=== PATIENT | female | born 1945 | race Caucasian/White ===

== ENCOUNTER 2019-10-16 10:27 | Outpatient (CLI) | payer MEDICARE, OTHER, SELFPAY ==
--- NOTE | ~2019-10-16 | MM_ITS ---
EXAMINATION: MM screening macy BI w richar HISTORY: Screening mammogram TECHNIQUE: Craniocaudal and mediolateral oblique 3-D tomosynthesis images were obtained and synthetic 2-D images were generated. CAD analysis was submitted and interpreted. COMPARISON: 09/07/2017, 06/28/2016, 05/12/2015 bilateral digital screening mammogram examinations BREAST PARENCHYMAL COMPOSITION: There are scattered areas of fibroglandular density. FINDINGS: There is no evidence of suspicious mass, calcification, or architectural distortion to sugg est malignancy in either breast. There has been no suspicious interval change. IMPRESSION: 1. No mammographic evidence of malignancy. 2. Recommend routine screening mammography in one year. BI-RADS Category 1: Negative Reviewed, dictated and finalized at location A.
== END 2019-10-16 10:28 | disposition home or self-care (01) ==
PROVIDERS: PCP Family Medicine; Visit Provider Nurse Practitioner Adult Health
DX: Z12.31 Encounter for screening mammogram for malignant neoplasm of breast (principal)
CPT/HCPCS: 77063; 77067

== ENCOUNTER 2021-09-19 12:04 | Emergency (ER) | payer MEDICARE, SELFPAY ==
[2021-09-19 12:15] VITALS: BP 156/94; PULSE 69; RESP 18; TEMP 36.6; O2SAT 99
--- NOTE | 2021-09-19 12:24 | ED.SKABFB ---
HPI - Skin/Abscess/Foreign Bdy General Chief complaint: Skin/Abscess/Foreign Body Stated complaint: Insect Bite Back Time Seen by Provider: 09/19/21 12:25 History of Present Illness HPI narrative: Daxa Piña is a 76 yo female with HTN, high cholesterol, [facility] with a tick bite on her left flank that has been there for few days her removed the tick yesterday and is got a small red area there but no spreading erythema Related Data Home Medications Medication Instructions Recorded Confirmed atenolol 50 mg-chlorthalidone 25 1 tablet DAILY 09/19/21 09/19/21 mg tablet simvastatin 20 mg tablet 1 tablet DAILY 09/19/21 09/19/21 Allergies Allergy/AdvReac Type Severity Reaction Status Date / Time No Known Allergies Allergy Verified 09/19/21 12:34 Review of Systems Review of Systems: CONSTITUTIONAL: Denies fever, chills, sweats. EYES: Denies visual changes, redness, discharge. ENT: Denies rhinorrhea, congestion, sore throat, otalgia. CARDIOVASCULAR: Denies chest pain, palpitations, edema. RESPIRATORY: Denies dyspnea, wheezing, cough GASTROINTESTINAL: Denies abdominal pain, nausea, vomiting, diarrhea. GENITOURINARY: Denies dysuria, hematuria, abnormal discharge SKIN: Denies rash or itching. Possible tick on left flank that was removed last night NEUROLOGIC: Denies numbness, or focal weakness. PSYCHIATRIC: Denies anxiety or depression. [facility] Social History Social History (Updated 09/19/21 @ 12:36 by Rose Corral CNP) Smoking status: Never smoker Alcohol intake: never Living arrangements: with family Comments At time of signature, I agree with nursing past medical, surgical, social and family history. There is no relevant family history pertinent to the presenting complaint. Exam Narrative: GENERAL: This is a well-nourished, well-developed patient, in mild distress. HEAD: normocephalic, atraumatic. EYES: . Sclera clear/white. Vision is grossly intact. EARS: External ears normal, . Hearing grossly intact. NOSE: External nose normal without nasal discharge, nares without redness, no rhinorrhea. THROAT: Mucous membranes moist, NECK: Neck supple, CARDIOVASCULAR: Regular rate and rhythm without murmurs, gallops, or rubs. RESPIRATORY: Clear to auscultation. Breath sounds equal bilaterally. No wheezes, rales, or rhonchi. GASTROINTESTINAL: Abdomen soft, left flank small red lesion where tick was looks noninflamed, nontender, SKIN: warm, intact with no suspicious lesions NEURO: awake, alert, and oriented to person, place and time. There were no obvious focal neurologic abnormalities. Steady gait EXTREMITIES: Normal range of motion. BACK: Nontender without deformity Course Course Emergency Course: Patient here with tick bite and removed tick last night but she wanted to have her skin checked Small lesion to left flank which is noninflamed and nontender looks like normal healing bite given information on potential symptoms that could develop and agreed on plan to not treat preventatively Level of Care: Express Care Visit Vital Signs Vital signs: Vital Signs Temperature 97.8 F 09/19/21 12:15 Pulse Rate 69 09/19/21 12:15 Respiratory Rate 18 09/19/21 12:15 Blood Pressure 156/94 H 09/19/21 12:15 Pulse Oximetry 99 09/19/21 12:15 Oxygen Delivery Room Air 09/19/21 12:15 Temperature 97.8 F 09/19/21 12:15 Pulse Rate 69 09/19/21 12:15 Respiratory Rate 18 09/19/21 12:15 Blood Pressure 156/94 H 09/19/21 12:15 Pulse Oximetry 99 09/19/21 12:15 Oxygen Delivery Room Air 09/19/21 12:15 MDM - Skin/Abscess/Foreign Bdy Differential Diagnosis Differential diagnosis: Likely cellulitis, insect bites and other (Tick bite) Critical Care Time Critical Care Time Critical Care Time: No Discharge Plan Discharge Clinical Impression: Tick bite Patient Disposition: Home, Self-Care Condition: Stable Instructions: Tick Bite (ED) Add
== END 2021-09-19 12:46 | disposition home or self-care (01) ==
PROVIDERS: Emergency Provider Nurse Practitioner; PCP Nurse Practitioner Adult Health
DX: S30.861A Insect bite (nonvenomous) of abdominal wall, initial encounter (principal); W57.XXXA Bitten or stung by nonvenomous insect and other nonvenomous arthropods, initial encounter; E78.00 Pure hypercholesterolemia, unspecified; I10 Essential (primary) hypertension
CPT/HCPCS: 99212; G0463

== ENCOUNTER 2023-12-10 10:18 | Outpatient (CLI) | payer MEDICARE, SELFPAY ==
--- NOTE | ~2023-12-10 | DEXA_ITS ---
Bone Density Report Name: LAYLA CORRALES Age: 78 Sex: Female Ethnicity: White Date of : 1945 Indication: osteopenia; Referring Provider: SILVINA POE Study: Bone densitometry was performed. Exam Date: December 10, 2023 Accession number: [id number] Bone Density: Region BMD T-score Z-score Classification AP Spine(L1, L2, L3) 0.876 -1.3 1.2 Osteopenia Femoral Neck (Left) 0.574 -2.5 -0.3 Osteoporosis Total Hip (Left) 0.719 -1.8 0.1 Osteopenia Femoral Neck (Right) 0.623 -2.0 0.1 Osteopenia Total Hip (Right) 0.698 -2.0 -0.1 Osteopenia Total Hip Mean 0.709 -1.9 0.0 Osteopenia World Health Organization criteria for BMD impression classify patients as: Normal (T-score at or above -1.0), Osteopenia (T-score between -1.0 and -2.5), or Osteoporosis (T-score at or below -2.5). 10-year Fracture Risk: FRAX not reported because: Some T-score for Spine Total or Hip Total or Femoral Neck at or below -2.5 Previous Exams: Region Exam Age BMD T-score BMD Change BMD Change Date g/cm2 vs Baseline vs Previous AP Spine (L1-L3) 12/10/2023 78 0.876 -1.3 -0.015 (-1.7%) -0.015 (-1.7%) 03/29/2018 73 0.891 -1.2 Total Hip(Left) 12/10/2023 78 0.719 -1.8 -0.033 (-4.4%) -0.033 (-4.4%) 03/29/2018 73 0.753 -1.6 Total Hip(Right) 12/10/2023 78 0.698 -2.0 -0.026 (-3.7%) -0.026 (-3.7%) 03/29/2018 73 0.725 -1.8 *Denotes significance at 95% confidence level, LSC for AP Spine = 0.022 g/cm2, LSC for Total Hip = 0.027 g/cm2 Clinical Information Provided by Patient: Has used the following medications: Calcium Patient maximum height was 67.5 Menopause Age: 47 Drinks caffeinated beverages Onset of menses at age 15 Number of children 0 Impression: The patient has osteoporosis, based on the Left Femoral Neck T-score. The BMD for the Total Hip(Left) decreased, changing by -4.4% since the last DXA exam. Discussion: INCREASED RISK OF FRACTURE. BONE DENSITY IS UNDESIRABLY LOW AT ONE OR MORE SKELETAL SITES, CONSISTENT WITH POSTMENOPAUSAL OSTEOPOROSIS. This patient's lowest T-score meets the World Health Organization's (WHO) criteria for osteoporosis at one or more sites (T-score -2.5 or below). In untreated patients, the risk of osteoporotic fracture increases approximately two-fold for each 1.0 SD decrease in T-score. Low bone density is not the only risk factor for fracture; also consider factors such as patient's age, frailty or poor health, risk
== END 2023-12-10 10:19 | disposition home or self-care (01) ==
LOC: ANHIMG 10:19
PROVIDERS: PCP Nurse Practitioner Family; Visit Provider Nurse Practitioner Family
DX: Z78.0 Asymptomatic menopausal state (principal)
CPT/HCPCS: 77080

== ENCOUNTER 2024-02-21 11:49 | Outpatient (CLI) | payer MEDICARE, SELFPAY ==
--- NOTE | ~2024-02-21 | XR_ITS ---
AP and lateral views of the right hip Clinical history: Pain Findings: No acute fracture or dislocation is seen. There is severe osteoarthritis of the right hip j oint. There is remodeling of the femoral head with reactive sclerosis and extensive osteophyte format ion.. Calcified uterine fibroids noted. Impression: Severe osteoarthritis of the right hip joint. Calcified uterine fibroids. Reviewed, dictated and finalized at location M. T TECHNICIAN Impression: Severe osteoarthritis of the right hip joint. Calcified uterine fibroids.
--- NOTE | ~2024-02-21 | XR_ITS ---
Right Knee Technique: AP, lateral, and sunrise views were obtained. Clinical History: Pain Findings: No fracture or dislocation is seen. Osseous alignment is anatomic. Joint spaces are preserv ed without degenerative or erosive change. Soft tissues are unremarkable. No joint effusion is seen. Impression: Unremarkable right knee radiographs. Reviewed, dictated and finalized at location . CTOR CARDIOVASCULAR Impression: Unremarkable right knee radiographs.
== END 2024-02-21 11:50 | disposition home or self-care (01) ==
PROVIDERS: PCP Nurse Practitioner Family; Visit Provider Nurse Practitioner Family
DX: M16.11 Unilateral primary osteoarthritis, right hip (principal); D25.9 Leiomyoma of uterus, unspecified; M25.561 Pain in right knee
CPT/HCPCS: 73502; 73562

== ENCOUNTER 2024-06-18 08:56 | Outpatient (CLI) | payer MEDICARE, SELFPAY ==
--- NOTE | 2024-06-18 09:19 | ECG_ITS ---
Test Date: 2024-06-18 09:46:55 Measurements Intervals [place] Rate: 74 P: 67 SD: 144 QRS: 51 QRSD: 89 T: 67 QT: 385 QTc: 427 Interpretive Statements SINUS RHYTHM POSSIBLE LEFT ATRIAL ENLARGEMENT CANNOT R/O SEPTAL INFARCT, AGE INDETERMINATE ABNORMAL ECG No previous ECG available for comparison Electronically Signed On 06-18-2024 10:01:52 CDT by Mo Dumont D.O.
--- OUTSIDE RECORDS SUMMARY | 2024-06-18 09:24 | XMS_ITS | Data Portability ---
Author Organization [facility] [employer], Main Office Address [address] [place] [address] Assessment No assessment recorded. Plan of Treatment Reminders Order Date Submit Date Provider Last Modified By Organization Details Last Modified Time Details Appointments None recorded. Lab BMP, serum or plasma 2022 023 [facility], [address] [place], [address], 3 20:27:40 lipid panel, serum 2022 023 [facility], [address] [place], [address], 3 20:27:44 hepatic function panel, serum 2022 023 [facility], [address] [place], [address], 3 20:27:47 Referral None recorded. Procedures None recorded. Surgeries None recorded. Imaging None recorded. Medication Orders None recorded. Patient TargetsNo targets recorded. Patient Instructions Encounter Date Encounter Id Patient Instructions Last Modified By Organization Details Last Modified Time 07/10/2022 [id number] FU in 6 mo for htn, lipid, back/hip/hand pain Not available 07/11/2022 07:36:11 11/29/2022 [id number] 6 mo fu htn, lipid. Not available 11/29/2022 09:25:11 Reason for Referral None Reported. Results Created Date Observation Date Name Description Value Unit Range Abnormal Flag Note LastModifiedBy Organization Detail LastModifiedTime 06/14/19 22 06/14/2021 HEPAT IC FUNCT ION PANEL protein, total 6.9 g/dL 6.1-8. 1 normal Not Available [address], [address], 06/14/2021 03:41:31 06/14/19 22 06/14/2021 HEPAT IC FUNCT ION PANEL albumin 4.6 g/dL 3.6-5. 1 normal Not Available [address], [address], 06/14/2021 03:41:31 06/14/19 22 06/14/2021 HEPAT IC FUNCT ION PANEL globulin 2.3 g/dL_ (calc ) 1.9-3. 7 normal Not Available [address], [address], 06/14/2021 03:41:31 06/14/19 22 06/14/2021 HEPAT IC FUNCT ION PANEL albumin/glob ulin ratio 2.0 (calc ) 1.0-2. 5 normal Not Available [address], [address], 06/14/2021 03:41:31 06/14/19 22 06/14/2021 HEPAT IC FUNCT ION PANEL bilirubin, total 0.6 mg/dL 0.2-1. 2 normal Not Available [address], [address], 06/14/2021 03:41:31 06/14/19 22 06/14/2021 HEPAT IC FUNCT ION PANEL bilirubin, direct 0.1 mg/dL < or = 0.2 normal Not Available [address], [address], 06/14/2021 03:41:31 06/14/19 22 06/14/2021 HEPAT IC FUNCT ION PANEL bilirubin, indirect 0.5 mg/dL _(flavia c) 0.2-1. 2 normal Not Available [address] [place], [address], 06/14/2021 03:41:31 06/14/19 22 06/14/2021 HEPAT IC FUNCT ION PANEL alkaline phosphatase 67 U/L 37-153 normal Not Available [facility] [email or web address] [address] [address] [place], [address], 06/14/2021 03:41:31 06/14/19 22 06/14/2021 HEPAT IC FUNCT ION PANEL AST 33 U/L 10-35 normal Not Available [address] [address] [place], [address], 06/14/2021 03:41:31 06/14/19 22 06/14/2021 HEPAT IC FUNCT ION PANEL ALT 20 U/L 6-29 normal Not Available [address], [address], 06/14/2021 03:41:31 06/14/19 22 06/14/2021 BASIC METAB OLIC PANEL glucose 99 mg/dL 65-99 normal Fasti ng refer ence inter laverne Not Available [address], [address], 06/14/2021 03:41:31 06/14/19 22 06/14/2021 BASIC METAB OLIC PANEL urea nitrogen (BUN) 14 mg/dL 7-25 normal Not Available [address], [address], 06/14/2021 03:41:31 06/14/19 22 06/14/2021 BASIC METAB OLIC PANEL creatinine 0.68 mg/dL 0.60-0 .93 normal For patie nts >49 years of age, the refer ence limit for Creat inine is appro ximat orion 13% highe r for peopl e ident ified as Afric an-Am kathy n. Not Available [address], [address], 06/14/2021 03:41:31 06/14/19 22 06/14/2021 BASIC METAB OLIC PANEL eGFR non-afr. swiss 86 mL/mi n/1.7 3m2 > or = 60 normal Not Available [address], [address], 06/14/2021 03:41:31 06/14/19 22 06/14/2021 BASIC METAB OLIC PANEL eGFR 100 mL/mi n/1.7 3m2 > or = 60 normal Not Available [address], [address], 06/14/2021 03:41:31 06/14/19 22 06/14/2021 BASIC METAB OLIC PANEL BUN/creatini ne ratio not applic able (calc ) 6-22 Not Available [address], [address], 06/14/2021 03:41:31 06/14/19 22 06/14/2021 BASIC METAB OLIC PANEL sodium 132 mmol/ L 135-14 6 low Not Available [address], [address], 06/14/2021 03:41:31 06/14/19 22 06/14/2021 BASIC METAB OLIC PANEL potassium 4.3 mmol/ L 3.5-5. 3 normal Not Available [address], [address], 06/14/2021 03:41:31 06/14/19 22 06/14/2021 BASIC METAB OLIC PANEL chloride 95 mmol/ L 98-110 low Not Available [address], [address], 06/14/2021 03:41:31 06/14/19 22 06/14/2021 BASIC METAB OLIC PANEL carbon dioxide 30 mmol/ L 20-32 normal Not Available [address], [address], 06/14/2021 03:41:31 06/14/19 22 06/14/2021 BASIC METAB OLIC PANEL calcium 10.3 mg/dL 8.6-10 .4 normal Not Available [address], [address], 06/14/2021 03:41:31 06/14/19 22 06/14/2021 LIPID PANEL , STAND PATT chol/HDLC ratio 2.7 (calc ) <5.0 normal Not Available [address], [address], 06/14/2021 03:41:30 06/14/19 22 06/14/2021 LIPID PANEL , STAND PATT cholesterol, total 203 mg/dL <200 high Not Available [address], [address], 06/14/2021 03:41:30 06/14/19 22 06/14/2021 LIPID PANEL , STAND PATT HDL cholesterol 75 mg/dL > or = 50 normal Not Available [address], [address], 06/14/2021 03:41:30 06/14/19 22 06/14/2021 LIPID PANEL , STAND PATT triglyceride s 55 mg/dL <150 normal Not Available [address], [address], 06/14/2021 03:41:30 06/14/19 22 06/14/2021 LIPID PANEL , STAND PATT LDL-choleste rol 114 mg/dL _(flavia c) high Refer ence range : <100 Elham able range <100 mg/dL for prima ry preve ntion ; <70 mg/dL for patie nts with CHD or diabe tic patie nts with > or = 2 CHD risk facto rs. LDL-C is now calcu lated using the [facility] fahad kelly, which is a valid ated novel metho d provi preston cedrick r accur acy than the Fried nestor equat ion in the estim ation of LDL-C . Abby n SS et al. ZORNA. 2013; 310(1 9): 2061- 2068 (http ://ed ucati on.Qu Reba brunoBEAT [employer]. com/f aq/FA Q164) Not Available [facility] [address] [place], [address], 06/14/2021 03:41:30 06/14/19 22 06/14/2021 LIPID PANEL , STAND PATT non HDL cholesterol 128 mg/dL _(flavia c) <130 normal For patie nts with diabe yoni plus 1 major ASCVD risk facto r, treat ing to a non-H DL-C goal of <100 mg/dL (LDL- C of <70 mg/dL ) is consi stand a quintina pekarenai c optio n. Not Available [employer] [facility] [address] [address], [place], [address], 06/14/2021 03:41:30 12/30/19 22 12/29/2021 LIPID PANEL LDL cholesterol, calculated 120 mg/dL 0-130 NIH ABENA NSUS REPOR T RECOM MENDA TIONS FOR LDL: ADULT CHILD LOW RISK <130 <110 (OPTI MAL LDL) <100 ----- BORDE RLINE : 130-1 59 ----- HIGH RISK: >160 >130 A TRIGL YCERI DE RESUL T >400 INVAL IDATE S THE CALCU LATIO N FOR LDL FRACT IONAT ION - THE LDL RESUL T WILL NOT BE REPOR JIMBO. Not Available [facility] (Lab) [address] [place], [address], 12/29/2021 20:27:48 12/30/1912/29/2021 LIPID PANEL cholesterol 193 mg/dL 140-19 9 NIH ABENA NSUS RECOM MENDA TION FOR CHRISTIANE STERO L: ADULT CHILD LOW RISK: <200 <170 BORDE RLINE : <200- 239 ----- HIGH RISK: >240 >200 Not Available [facility] (Lab) [address] [place], [address], 12/29/2021 20:27:48 12/30/19 22 12/29/2021 LIPID PANEL triglyceride s 58 mg/dL 0-150 NIH ABENA NSUS REPOR T RECOM MENDA TION FOR TRIGL YCERI NAN: ADULT CHILD LOW RISK: <150 ----- BODER LINE: 150-1 99 ----- HIGH RISK: >200 ----- Not Available [facility] (Lab) [address] [place], [address], 12/29/2021 20:27:48 12/30/19 22 12/29/2021 LIPID PANEL HDL cholesterol 61 mg/dL 40- Not Available [facility] (Lab) [address] [place], [address], 12/29/2021 20:27:48 12/30/19 22 12/29/2021 HEPAT IC/LI SEJAL PANEL albumin 4.3 g/dL 3.0-4. 4 Not Available [facility] (Lab) [address] [place], [address], 12/29/2021 20:27:45 12/30/19 22 12/29/2021 HEPAT IC/LI SEJAL PANEL globulin 2.7 g/dL 2.6-4. 2 Not Available [facility] (Lab) [address] [place], [address], 12/29/2021 20:27:45 12/30/19 22 12/29/2021 HEPAT IC/LI SEJAL PANEL A/G ratio 1.6 ratio 1.0-2. 0 Not Available [facility] (Lab) [address] [place], [address], 12/29/2021 20:27:45 12/30/19 22 12/29/2021 HEPAT IC/LI SEJAL PANEL alkaline phosphatase 68 U/L 38-126 Not Available [facility] (Lab) [address] [place], [address], 12/29/2021 20:27:45 12/30/19 22 12/29/2021 HEPAT IC/LI SEJAL PANEL alanine aminotransfe rase 22 U/L 0-[address] [facility] (Lab) [address] [place], [address], 12/29/2021 20:27:45 12/30/1912/29/2021 HEPAT IC/LI SEJAL PANEL aspartate aminotransfe rase 47 U/L 15-37 high Not Available [facility] (Lab) [address] [place], [address], 12/29/2021 20:27:45 12/30/1912/29/2021 HEPAT IC/LI SEJAL PANEL bilirubin, total 0.50 mg/dL 0.20-1 .30 Not Available [facility] (Lab) [address] [place], [address], 12/29/2021 20:27:45 12/30/1912/29/2021 HEPAT IC/LI SEJAL PANEL bilirubin, conjugated (direct) 0.00 mg/dL 0.00-0 .30 Not Available [facility] (Lab) [address] [place], [address], 12/29/2021 20:27:45 12/30/1912/29/2021 HEPAT IC/LI SEJAL PANEL biliurubin,u ncong. (indirect) 0.40 mg/dL 0.00-1 .1 Not Available [facility] (Lab) [address] [place], [address], 12/29/2021 20:27:45 12/30/19 22 12/29/2021 HEPAT IC/LI SEJAL PANEL total protein 7.0 g/dL 6.3-8. 2 Not Available [facility] (Lab) [address] [place], [address], 12/29/2021 20:27:45 12/30/19 22 12/29/2021 BASIC METAB OLIC PANEL glucose 102 mg/dL 70-99 high Not Available [facility] (Lab) [address] [place], [address], 12/29/2021 20:27:39 12/30/19 22 12/29/2021 BASIC METAB OLIC PANEL sodium 132 mmol/ L 137-14 5 low Not Available [facility] (Lab) [address] [place], [address], 12/29/2021 20:27:39 12/30/1912/29/2021 BASIC METAB OLIC PANEL potassium 4.4 mmol/ L 3.5-5. 1 Not Available [facility] (Lab) [address] [place], [address], 12/29/2021 20:27:39 12/30/1912/29/2021 BASIC METAB OLIC PANEL chloride 94 mmol/ L 98-107 low Not Available [facility] (Lab) [address] [place], [address], 12/29/2021 20:27:39 12/30/19 22 12/29/2021 BASIC METAB OLIC PANEL carbon dioxide 35 mmol/ L 22-30 high Not Available [facility] (Lab) [address] [place], [address], 12/29/2021 20:27:39 12/30/19 22 12/29/2021 BASIC METAB OLIC PANEL anion gap 7.4 mmol/ L 14-22 low Not Available [facility] (Lab) [address] [place], [address], 12/29/2021 20:27:39 12/30/19 22 12/29/2021 BASIC METAB OLIC PANEL BUN 21 mg/dL 8-19 high Not Available [facility] (Lab) [address] [place], [address], 12/29/2021 20:27:39 12/30/19 22 12/29/2021 BASIC METAB OLIC PANEL creatinine 0.70 mg/dL 0.66-1 .25 Not Available [facility] (Lab) [address] [place], [address], 12/29/2021 20:27:39 12/30/19 22 12/29/2021 BASIC METAB OLIC PANEL GFR >60 Refer ence Range : [place] GFR Healt hy Adult : >60 mL/mi n/1.7 3 m2 Chron ic Kidne y Disea se: 15-60 mL/mi n/1.7 3 m2 Kidne y Failu re: <15/m L/min /1.73 m2 www.n iddk. nih.g ov The MDRD study equat ion has not been valid ated in child jorge <18 years of age; pregn ant women ; the elder ly >85 years of age; or in some racia l or ethni c subgr oups, such as Hisky nics. Outsi de the valid ated ayala eters , estim ated GFR is less accur ate, requi ring clini flavia judgm ent on a case- by-ca se basis . Clini flavia inter preta tion for other races and ages must be made by the clini karina. The MDRD study equat ion has not been valid ated for the evalu ation of serum creat inine relat ed to nutri juan l statu s or medic ation usage . For perso ns <18 years of age, a pedia tric GFR calcu lator is avail able on the F websi te: https ://salena w.raj tirado.o rg/pr ofess ional s/kdo qi/gf r_cal culat or Not Available [facility] (Lab) [address] [place], [address], 12/29/2021 20:27:39 12/30/19 22 12/29/2021 BASIC METAB OLIC PANEL calcium 9.8 mg/dL 8.4-10 .2 Not Available [facility] (Lab) [address] [facility], [place], [address], 12/29/2021 20:27:39 01/27/20 22 01/27/2022 RENAL FUNCT ION PANEL glucose 90 mg/dL 65-99 normal Fasti ng refer ence inter laverne Not Available [address] [address] [place], [address], 01/27/2022 02:18:26 01/27/20 22 01/27/2022 RENAL FUNCT ION PANEL urea nitrogen (BUN) 18 mg/dL 7-25 normal Not Available [address], [address], 01/27/2022 02:18:26 01/27/20 22 01/27/2022 RENAL FUNCT ION PANEL creatinine 0.79 mg/dL 0.60-1 .00 normal Not Available [address], [address], 01/27/2022 02:18:26 01/27/20 22 01/27/2022 RENAL FUNCT ION PANEL eGFR 78 mL/mi n/1.7 3m2 > or = 60 normal The eGFR is based on the CKD-E PI 2020 equat ion. To calcu late the new eGFR from a previ ous Creat inine or Cysta tin C resul t, go to https ://salena hair.raj tirado.o lena/candice hooker s/ kdoqi /gfr% 5Fcal culat or Not Available [address] [address] [place], [address], 01/27/2022 02:18:26 01/27/20 22 01/27/2022 RENAL FUNCT ION PANEL BUN/creatini ne ratio not applic able (calc ) 6-22 Not Available [address] [address] [place], [address], 01/27/2022 02:18:26 01/27/20 22 01/27/2022 RENAL FUNCT ION PANEL sodium 136 mmol/ L 135-14 6 normal Not Available [address], [address], 01/27/2022 02:18:26 01/27/20 22 01/27/2022 RENAL FUNCT ION PANEL potassium 4.0 mmol/ L 3.5-5. 3 normal Not Available [address], [address], 01/27/2022 02:18:26 01/27/20 22 01/27/2022 RENAL FUNCT ION PANEL chloride 99 mmol/ L 98-110 normal Not Available [address], [address], 01/27/2022 02:18:26 01/27/20 22 01/27/2022 RENAL FUNCT ION PANEL carbon dioxide 30 mmol/ L 20-32 normal Not Available [address], [address], 01/27/2022 02:18:26 01/27/20 22 01/27/2022 RENAL FUNCT ION PANEL calcium 10.0 mg/dL 8.6-10 .4 normal Not Available [address], [address], 01/27/2022 02:18:26 01/27/20 22 01/27/2022 RENAL FUNCT ION PANEL phosphate ( phosphorus) 3.2 mg/dL 2.1-4. 3 normal Not Available [address], [address], 01/27/2022 02:18:26 01/27/20 22 01/27/2022 RENAL FUNCT ION PANEL albumin 4.4 g/dL 3.6-5. 1 normal Not Available [address], [address], 01/27/2022 02:18:26 07/14/19 23 07/13/2022 BASIC METAB OLIC PANEL sodium 133 mmol/ L 137-14 5 low Not Available [facility] (Lab) [address] [place], [address], 07/13/2022 20:27:40 07/14/19 23 07/13/2022 BASIC METAB OLIC PANEL potassium 3.9 mmol/ L 3.5-5. 1 Not Available [facility] (Lab) [address] [place], [address], 07/13/2022 20:27:40 07/14/19 23 07/13/2022 BASIC METAB OLIC PANEL chloride 96 mmol/ L 98-107 low Not Available [facility] (Lab) [address] [place], [address], 07/13/2022 20:27:40 07/14/19 23 07/13/2022 BASIC METAB OLIC PANEL carbon dioxide 30 mmol/ L 22-30 Not Available [facility] (Lab) [address] [place], [address], 07/13/2022 20:27:40 07/14/19 23 07/13/2022 BASIC METAB OLIC PANEL anion gap 10.9 mmol/ L 14-22 low Not Available [facility] (Lab) [address] [place], [address], 07/13/2022 20:27:40 07/14/19 23 07/13/2022 BASIC METAB OLIC PANEL glucose 93 mg/dL 70-99 Not Available [facility] (Lab) [address] [place], [address], 07/13/2022 20:27:40 07/14/19 23 07/13/2022 BASIC METAB OLIC PANEL BUN 14 mg/dL 8-19 Not Available [facility] (Lab) [address] [place], [address], 07/13/2022 20:27:40 04/07/13/2022 BASIC METAB OLIC PANEL creatinine 0.68 mg/dL 0.66-1 .25 Not Available [facility] (Lab) [address] [place], [address], 07/13/2022 20:27:40 07/14/19 23 07/13/2022 BASIC METAB OLIC PANEL GFR >60 Refer ence Range : [place] GFR Healt hy Adult : >60 mL/mi n/1.7 3 m2 Chron ic Kidne y Disea se: 15-60 mL/mi n/1.7 3 m2 Kidne y Failu re: <15/m L/min /1.73 m2 www.n iddk. nih.g ov The MDRD study equat ion has not been valid ated in child jorge <18 years of age; pregn ant women ; the elder ly >85 years of age; or in some racia l or ethni c subgr oups, such as Hispa nics. Outsi de the valid ated ayala eters , estim ated GFR is less accur ate, requi ring clini flavia judgm ent on a case- by-ca se basis . Clini flavia inter preta tion for other races and ages must be made by the clini karina. The MDRD study equat ion has not been valid ated for the evalu ation of serum creat inine relat ed to nutri juan l statu s or medic ation usage . For perso ns <18 years of age, a pedia tric GFR calcu lator is avail able on the [facility] websi te: https ://salena w.raj tirado.o rg/pr emeliess kaelighal s/kdo qi/gf r_cal culat or Not Available [facility] (Lab) [address] [place], [address], 07/13/2022 20:27:40 07/14/1907/13/2022 BASIC METAB OLIC PANEL calcium 9.9 mg/dL 8.4-10 .2 Not Available [facility] (Lab) [address] [place], [address], 07/13/2022 20:27:40 07/14/19 23 07/13/2022 LIPID PANEL cholesterol 203 mg/dL 140-19 9 high NIH ABENA NSUS RECOM MENDA TION FOR CHRISTIANE STERO L: ADULT CHILD LOW RISK: <200 <170 BORDE RLINE : <200- 239 ----- HIGH RISK: >240 >200 Not Available [facility] (Lab) [address] [place], [address], 07/13/2022 20:27:44 07/14/19 23 07/13/2022 LIPID PANEL triglyceride s 60 mg/dL 0-150 NIH ABENA NSUS REPOR T RECOM MENDA TION FOR TRIGL YCERI NAN: ADULT CHILD LOW RISK: <150 ----- BODER LINE: 150-1 99 ----- HIGH RISK: >200 ----- Not Available [facility] (Lab) [address] [place], [address], 07/13/2022 20:27:44 07/14/19 23 07/13/2022 LIPID PANEL HDL cholesterol 79 mg/dL 40- Not Available [facility] (Lab) [address] [place], [address], 07/13/2022 20:27:44 07/14/19 23 07/13/2022 LIPID PANEL LDL cholesterol, calculated 112 mg/dL 0-130 NIH ABENA NSUS REPOR T RECOM MENDA TIONS FOR LDL: ADULT CHILD LOW RISK <130 <110 (OPTI MAL LDL) <100 ----- BORDE RLINE : 130-1 59 ----- HIGH RISK: >160 >130 A TRIGL YCERI DE RESUL T >400 INVAL IDATE S THE CALCU LATIO N FOR LDL FRACT IONAT ION - THE LDL RESUL T WILL NOT BE REPOR JIMBO. Not Available [facility] (Lab) [address] [place], [address], 07/13/2022 20:27:44 07/14/19 23 07/13/2022 HEPAT IC/LI SEJAL PANEL alkaline phosphatase 61 U/L 38-126 Not Available [facility] (Lab) [address] [place], [address], 07/13/2022 20:29:03 07/14/19 23 07/13/2022 HEPAT IC/LI SEJAL PANEL alanine aminotransfe rase 25 U/L 0-[address] [facility] (Lab) [address] [place], [address], 07/13/2022 20:29:03 07/14/19 23 07/13/2022 HEPAT IC/LI SEJAL PANEL aspartate aminotransfe rase 46 U/L 15-37 high Not Available [facility] (Lab) [address] [place], [address], 07/13/2022 20:29:03 07/14/19 23 07/13/2022 HEPAT IC/LI SEJAL PANEL bilirubin, total 0.50 mg/dL 0.20-1 .30 Not Available [facility] (Lab) [address] [place], [address], 07/13/2022 20:29:03 07/14/19 23 07/13/2022 HEPAT IC/LI SEJAL PANEL bilirubin, conjugated (direct) 0.00 mg/dL 0.00-0 .30 Not Available [facility] (Lab) [address] [place], [address], 07/13/2022 20:29:03 07/14/19 23 07/13/2022 HEPAT IC/LI SEJAL PANEL biliurubin,u ncong. (indirect) 0.30 mg/dL 0.00-1 .1 Not Available [facility] (Lab) [address] [place], [address], 07/13/2022 20:29:03 07/14/19 23 07/13/2022 HEPAT IC/LI SEJAL PANEL total protein 7.3 g/dL 6.3-8. 2 Not Available [facility] (Lab) [address] [place], [address], 07/13/2022 20:29:03 07/14/19 23 07/13/2022 HEPAT IC/LI SEJAL PANEL albumin 4.4 g/dL 3.0-4. 4 Not Available [facility] (Lab) [address] [place], [address], 07/13/2022 20:29:03 07/14/19 23 07/13/2022 HEPAT IC/LI SEJAL PANEL globulin 2.9 g/dL 2.6-4. 2 Not Available [facility] (Lab) [address] [place], [address], 07/13/2022 20:29:03 07/14/19 23 07/13/2022 HEPAT IC/LI SEJAL PANEL A/G ratio 1.5 ratio 1.0-2. 0 Not Available [facility] (Lab) [address] [place], [address], 07/13/2022 20:29:03 Result Notes None recorded. 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 Active Not Available [facility] 3 03:22:42 Eruption 592535103 Completed Not Available [facility] 3 03:22:42 Abdominal mass 781967415 Completed Not Available [facility] 3 03:22:42 Low back pain 709324575 Active Not Available [facility] 3 03:22:42 Hyperlipid emia 38349419 Active Not Available [facility] 3 03:22:42 Essential hypertensi on 74374052 Active Not Available [facility] 3 03:22:42 Hyponatrem ia 85292305 Active 2021 Not Available [facility] 3 03:22:42 Problem Notes None recorded. Medical Equipment None Reported. Allergies No known drug allergies Medications Name Sig Start Date Stop Date Status Note LastModified by Organization Details LastModified Time silver sulfadiazin e 1 % topical cream APPLY TO LEG TWICE DAILY DIRECTED 07/10 completed Not Available Not Available Not Available valacyclovi r 1 gram tablet 02/14 completed PRN Not Available Not Available Not Available fluorouraci l 5 % topical cream APPLY TO SPOTS TWICE DAILY X 6 WEEKS 06/07 completed Not Available Not Available Not Available simvastatin 10 mg tablet Take 1 tablet every day by oral route for 90 days. active Not Available Not Available No t Available atenolol 50 mg-chlortha lidone 25 mg tablet TAKE 1 TABLET BY MOUTH DAILY active Not Available Not Available No t Available sulfamethox azole 800 mg-trimetho prim 160 mg tablet TK 1 T PO Q 12 H WITH MEALS FOR 10 DAYS. active Not Available Not Available No t Available ciclopirox 8 % topical solution APPLY TO AFFECTED AREA BY TOPICAL ROUTE ONCE DAILY PREFERABL Y AT BEDTIME OR 8 HOURS BEFPRE WASHING 03/30 completed Not Available Not Available Not Available cephalexin 500 mg capsule TAKE 1 CAPSULE BY MOUTH THREE TIMES DAILY FOR 10 DAYS 06/07 completed Not Available Not Available Not Available simvastatin 20 mg tablet TAKE 1 TABLET BY MOUTH DAILY active Not Available Not Available No t Available triamcinolo ne acetonide 0.1 % topical ointment 07/10 completed Not Available Not Available Not Available atenolol 50 mg tablet 03/29 completed Not Available Not Available Not Available hydrochloro thiazide 12.5 mg tablet TAKE 1 TABLET BY MOUTH DAILY 07/10 completed Not Available Not Available Not Available Truveris 1.5 billion cell capsule Take 1 capsule every day by oral route as directed for 30 days. 08/30 completed Not Available Not Available Not Available BinaxNOW COVID-19 Ag Self Test kit TEST DIRECTED TODAY 12/29 completed Not Available Not Available Not Available Vitals Date Recorded Body height Body mass index (BMI) Body weight Body temperature Heart rate Respiratory rate Oxygen saturation Oxygen saturation in Arterial blood by Pulse oximetry Pain severity - 0-10 verbal numeric rating [Score] - Reported Systolic blood pressure Diastolic blood pressure Provider Name and Address Organization Details Last Updated DateTime 3 170.18 cm 18.5 kg/m2 50365.6 g 96.7 [degF] 75 /min 16 /min 97 % 97 % 0 140 mm[Hg] 82 mm[Hg] Francesca Clements RN [facility] [employer] [facility] 3 15:55:29 Date Recorded Body height Provider Name an d Address Organization Details Last Updated DateTime 07/13/2022 170.18 cm Deanna Gutierrez MA [facility] [place] [facility] 07/13/2022 12:45:49 Date Recorded Body height Body mass index (BMI) Body weight Body temperature Heart rate Respiratory rate Oxygen saturation Oxygen saturation in Arterial blood by Pulse oximetry Pain severity - 0-10 verbal numeric rating [Score] - Reported Systolic blood pressure Diastolic blood pressure Provider Name and Address Organization Details Last Updated DateTime 3 170.18 cm 18.9 kg/m2 57757.1 8 g 96.1 [degF] 72 /min 16 /min 98 % 98 % 0 140 mm[Hg] 84 mm[Hg] Francesca Clements RN [facility] [place] [facility] 3 09:09:54 Date Recorded Body mass index (BMI) Body height Oxygen saturation Oxygen saturation in Arterial blood by Pulse oximetry Heart rate Body temperature Body weight Systolic blood pressure Diastolic blood pressure Provider Name and Address Organization Details Last Updated DateTime 2 19.1 kg/m2 170.18 cm 95 % 95 % 72 /min 97.1 [degF] 23401.2 7 g 126 mm[Hg] 80 mm[Hg] Not Available [facility] 3 03:19:00 Date Recorded Body mass index (BMI) Body height Oxygen saturation Oxygen saturation in Arterial blood by Pulse oximetry Heart rate Body temperature Body weight Systolic blood pressure Diastolic blood pressure Provider Name and Address Organization Details Last Updated DateTime 2 18.8 kg/m2 170.18 cm 97 % 97 % 81 /min 97.3 [degF] 70506.0 8 g 130 mm[Hg] 82 mm[Hg] Not Available [facility] 3 03:19:00 Social History Question Answer Notes LastModified by Organizat ion Details LastModified Time Tobacco Smoking Status Never Smoker Yasmin jones, [facility] 11/29/2022 09:02:22 What Is Your Level Of Alcohol Consumption? Occasional [id number] Information not available 05/17/2022 Are You Blind Or Do You Have Difficulty Seeing? No [email or web address] Information not available 11/29/2022 Is Blood Transfusion Acceptable In An Emergency? Yes Information not available 11/29/2022 What Is Your Level Of Caffeine Consumption? Occasional [id number] Information not available 05/17/2022 How Much Tobacco Do You Chew? None [id number] Information not available 05/17/2022 What Is Your Code Status? Full Code Information not available 11/29/2022 In The 14 Days Before Symptom Onset, Have You Had Close Contact With A Laboratory-confi rmed COVID-19 While That Case Was Ill? No [email or web address] Information not available 11/29/2022 In The 14 Days Before Symptom Onset, Have You Had Close Contact With A Person Who Is Under Investigation For COVID-19 While That Person Was Ill? No Information not available 11/29/2022 Are You Deaf Or Do You Have Serious Difficulty Hearing? No [email or web address] Information not available 11/29/2022 What Type Of Diet Are You Following? REGULAR Information not available 07/10/2022 Which Illicit Or Recreational Drugs Have You Used? None [email or web address] Information not available 11/29/2022 Do You Or Have You Ever Used E-cigarettes Or Vape? Never Used Electronic Cigarettes [email or web address] Information not available 11/29/2022 What Is Your Occupation? Retired [email or web address] Information not available 11/29/2022 How Many Days Of Moderate To Strenuous Exercise, Like A Brisk Walk, Did You Do In The Last 7 Days? 4 Information not available 11/29/2022 On Those Days That You Engage In Moderate To Strenuous Exercise, How Many Minutes, On Average, Do You Exercise? 60 Information not available 11/29/2022 Have There Been Any Changes To Your Family Or Social Situation? No [email or web address] Information not available 11/29/2022 Do You Use Insect Repellent Routinely? Yes [email or web address] Information not available 11/29/2022 Where [facility] You Live? [facility] [email or web address] Information not available 11/29/2022 Do You Have A Medical Power Of Shoe Stitcher Odd? Yes [email or web address] Information not available 11/29/2022 How Many Children Do You Have? 0 [email or web address] Information not available 11/29/2022 Do You Have Any Pets? Yes [email or web address] Information not available 11/29/2022 What Is Your Relationship Status? Information not available 07/10/2022 Do You Use Your Seat Belt Or Car Seat Routinely? Yes [email or web address] Information not available 11/29/2022 Do You Have Smoke And Carbon Monoxide Detectors In Your Home? Yes Information not available 11/29/2022 Do You Or Have You Ever Used Smokeless Tobacco? Never Used Smokeless Tobacco [id number] Information not available 05/17/2022 Are There Any Smokers In Your House? No [email or web address] Information not available 11/29/2022 How Much Tobacco Do You Smoke? No [id number] Information not available 05/17/2022 Do You Participate In Social Media? Yes [email or web address] Information not available 11/29/2022 What Types Of Sporting Activities Do You Participate In? Yoga, [place] [email or web address] Information not available 11/29/2022 Do You Feel Stressed (tense, Restless, Nervous, Or Anxious, Or Unable To Sleep At Night)? [id number] [email or web address] Information not available 11/29/2022 Do You Use Any Illicit Or Recreational Drugs? No [email or web address] Information not available 11/29/2022 Do You Use Sunscreen Routinely? Yes [email or web address] Information not available 11/29/2022 Have You Recently Traveled Abroad? No [email or web address] Information not available 11/29/2022 Sex: Unknown Functional Status Question Answer Note LastModified by Organizat ion Details LastModified Time Do you have difficulty walking or climbing stairs? No Information not available 11/29/2022 Do you have transportation difficulties? No [email or web address] Information not available 11/29/2022 Are you able to walk? YESWOREST [email or web address] Information not available 11/29/2022 Do you have difficulty doing errands alone? No Information not available 11/29/2022 Are you able to care for yourself? Yes [email or web address] Information n ot available 11/29/2022 Do you have difficulty dressing or bathing? No Information not available 11/29/2022 What is your exercise level? Moderate [id number] Information not available 05/17/2022 Mental Status Question Answer Note LastModified by Organization D etails LastModified Time Do you have difficulty concentrating, remembering or making decisions? No [email or web address] Information no t available 11/29/2022 Family History Relationship Description Onset Age of this Age Resolved Age Notes LastModified by Organization Details LastModified Time Mother Alzheimer's disease [id number] Not available 05/17/2022 03:14:42 Medical History Condition Response ARTHRITIS Y HYPERTENSION Y HIGH CHOLESTEROL / HYPERLIPIDEMIA Y Gynecological History Statement/Question Response If Post Menopausal, Age at Menopause 42 Date of Last Colonoscopy Most Recent Mammogram Most Recent Bone Density Obstetrics History GPAL:G 2 P 0 0 2 0 Type Value Induced 2 Total 2 Immunizations Vaccine Type Date Status Note Provider Nam e and Address Organization Details Recorded Time Influenza, high-dose, quadrivalent, PF 3 completed Francesca Carroll, [facility] [address] [facility], [facility] [address], [place], [address], [facility] 11/29/2022 09:30:26 COVID-19, mRNA, LNP-S, PF, 100 mcg/0.5mL dose or 50 mcg/0.25mL dose 1 completed Not Available [facility] 05/17/2022 03:31:42 COVID-19, mRNA, LNP-S, PF, 100 mcg/0.5mL dose or 50 mcg/0.25mL dose 1 completed Not Available [facility] 05/17/2022 03:31:42 Influenza, split virus, quadrivalent, preservative 0 completed Not Available [facility] 05/17/2022 03:31:42 Influenza, split virus, quadrivalent, preservative 7 completed Not Available [facility] 05/17/2022 03:31:42 zoster live 1 completed Not Available [facility] 05/17/2022 03:31:42 Tdap 0 completed Not Available [facility] 05/17/2022 03:31:42 Influenza, high-dose, trivalent, PF 9 completed Not Available [facility] 05/17/2022 03:31:42 Influenza, high-dose, trivalent, PF 8 completed Not Available [facility] 05/17/2022 03:31:42 Pneumococcal conjugate PCV 13 7 completed Not Available [facility] 05/17/2022 03:31:42 Influenza, high-dose, trivalent, PF 7 completed Not Available [facility] 05/17/2022 03:31:42 pneumococcal polysaccharide PPV23 4 completed Not Available [facility] 05/17/2022 03:31:43 Influenza, split virus, trivalent, PF 3 completed Not Available [facility] 05/17/2022 03:31:43 Past Encounters Encounter ID Performer Location Encounter Start Date Encounter Closed Date Diagnosis/Indication Diagnosis SNOMED-CT Code Diagnosis ICD10 Code Diagnosis [id number] [address] [place] [address] [place] [address] 06/21/2020 00:00:00 06/21/2020 13:10:[id number] [place] [address] 12/23/2020 00:00:00 12/23/2020 12:59:58 [id number] [facility] [address] [place] [address] [place] [address] 06/07/2021 00:00:00 06/07/2021 14:29:12 [id number] [facility] [address] [place] [address] [place] [address] 12/29/2021 00:00:00 12/29/2021 11:39:04 [id number] Francesca Carroll NP [address] [address] 07/10/2022 15:42:51 07/10/2022 17:47:19 Essential hypertension 89980707 I10 Atenolol 50 mg - chlorthali done 25 mg po daily.Salt sparingly. Hyperlipidemia 58681406 E78.5 Simvastati n 20 mg po nightly. Osteoarthritis of hip 23 2336652 M16.9 CBD oil under tongue. CBD cream and rub in. Voltaren gel otc. Low back pain 472846771 M54.50 Flares off and on from time to time. [id number] Francesca Carroll NP [facility] [address] 07/13/2022 11:13:42 07/13/2022 12:48:08 [id number] Francesca Carroll NP [facility] [address] 11/29/2022 09:01:27 11/29/2022 09:30:42 Essential hypertension 81721432 I10 Atenolol 50 mg - chlorthali done 25 mg po daily.Salt sparingly. Hyperlipidemia 60004035 E78.5 Simvastati n 20 mg po nightly. Osteoarthritis of hip 23 3858754 M16.9 CBD oil under tongue. CBD cream and rub in. Voltaren gel otc. Low back pain 929678482 M54.50 Flares off and on from time to time. Administra tion of influenza vaccine 32542821 Z23 flu shot high dose. Administra tion of tetanus vaccine 613312339 Z23 will get Td on next visit. Health Concerns Section Related Observation LastModified by Organization Detai ls LastModified Time None Recorded Concern Status LastModified by Organization Details LastModified Time None Recorded Advance Directives Directive None Recorded Payers Encounter Date Sequence Insurance Name Policy Number Policy Cancino Covered Member ID Cancino Member ID Guarantor Name 07/10/2022 1 [facility] (MEDICARE REPLACEMENT/A DVANTAGE - PPO) [id number] Daxa Piña [id number] Daxa Piña 07/13/2022 1 [facility] (MEDICARE REPLACEMENT/A DVANTAGE - PPO) [id number] Daxa Piña [id number] Daxa Piña 11/29/2022 1 [facility] (MEDICARE REPLACEMENT/A DVANTAGE - PPO) [id number] Daxa Piña [id number] Daxa Piña Notes Date Note Type Note Provider Name and Address Organization Details Recorded Time 07/10/2022 text/html Here for new patient appt. Transfer from [facility]. States she is feeling well.Doesn't wish to have colonoscopy.Act grayson with yoga Francesca Carroll NP [address], [place], [address], [facility] 07/11/2022 07:36:33 11/29/2022 text/html Here for follow up. Lipid- low fat diet.htn- stable Francesca Carroll NP [address], [place], [address], [facility] 11/29/2022 09:32:42 OBGyn Episode No OBEpisode recorded.
[2024-06-18 09:31] LABS: Add Urine Microscopic? YES; Appearance Urine Clear (Clear); Bacteria Urine None Seen /hpf; Bilirubin Urine Negative (Negative); Blood Urine Negative (Negative); Color Urine Yellow (Yellow); Glucose Urine UA Negative (Negative); Ketones Urine Negative (Negative); Leukocyte Esterase Ur 3+ LEU/UL (Negative); Nitrate Urine Negative (Negative); Non Pathogenic Casts 0-2; Protein Urine Negative (Negative); RBC Urine 0-2 /hpf (0-2); Specific Grav Ur 1.007 (1.001-1.035); Squamous Epithelial Cell Urine None Seen /hpf (Few); Urobilinogen Urine 0.2 mg/dL (<2.0)
== END 2024-06-18 08:57 | disposition home or self-care (01) ==
PROVIDERS: PCP Nurse Practitioner Family; Visit Provider Nurse Practitioner Family
DX: R94.31 Abnormal electrocardiogram [ECG] [EKG] (principal); R53.83 Other fatigue; I10 Essential (primary) hypertension
CPT/HCPCS: 81001; 87086; 93005

== ENCOUNTER 2024-08-14 08:38 | Outpatient (CLI) | payer MEDICARE, SELFPAY ==
--- NOTE | ~2024-08-14 | NM_ITS ---
EXAMINATION: NM keenan stress w perfusion DATE: 08/15/2024 10:20 CDT INDICATION: Dyspnea TECHNIQUE: Rest images were obtained following intravenous administration of 11.2 mCi Tc99m tetrofosm in (Myoview). The patient was infused intravenously with Lexiscan (regadenoson). Then, 34.9 mCi Tc99m tetrofosmin (Myoview) was administered intravenously, and stress images were obtained. Data was janet nstructed into short axis and horizontal and vertical long axis SPECT images. Gated SPECT images were also obtained. COMPARISON: No prior studies for comparison. . FINDINGS: There is no definite reversible or fixed perfusion abnormality to suggest ischemia or infar ction. There is no segmental wall motion abnormality. Left ventricular ejection fraction measures 7 6%. IMPRESSION: 1. No definite ischemia or infarct. 2. Normal left ventricular ejection fraction measuring 76%. Reviewed, dictated and finalized at location A.
--- OUTSIDE RECORDS SUMMARY | 2024-08-14 08:45 | XMS_ITS | Data Portability ---
Author Organization [facility] [employer], Main Office Address [address] [place] [address] Assessment No assessment recorded. Plan of Treatment Reminders Order Date Submit Date Provider Last Modified By Organization Details Last Modified Time Details Appointments None recorded. Lab BMP, serum or plasma 2022 023 [facility], [address] [place] [address], [address], 3 20:27:40 lipid panel, serum 2022 023 [facility], [address] [place], [address], 3 20:27:44 hepatic function panel, serum 2022 023 [facility], [address] [place], [address], 3 20:27:47 Referral None recorded. Procedures None recorded. Surgeries None recorded. Imaging None recorded. Medication Orders None recorded. Patient TargetsNo targets recorded. Patient Instructions Encounter Date Encounter Id Patient Instructions Last Modified By Organization Details Last Modified Time 07/10/2022 [id number] FU in 6 mo for htn, lipid, back/hip/hand pain Not available 07/11/2022 07:36:11 11/29/2022 [id number] 6 mo fu htn, lipid. Not available 11/29/2022 09:25:11 Reason for Referral None Reported. Results Created Date Observation Date Name Description Value Unit Range Abnormal Flag Note LastModifiedBy Organization Detail LastModifiedTime 06/14/19 22 06/14/2021 HEPAT IC FUNCT ION PANEL protein, total 6.9 g/dL 6.1-8. 1 normal Not Available [address], [address], 06/14/2021 03:41:31 06/14/19 22 06/14/2021 HEPAT IC FUNCT ION PANEL albumin 4.6 g/dL 3.6-5. 1 normal Not Available [address], [address], 06/14/2021 03:41:31 06/14/19 22 06/14/2021 HEPAT IC FUNCT ION PANEL globulin 2.3 g/dL_ (calc ) 1.9-3. 7 normal Not Available [address], [address], 06/14/2021 03:41:31 06/14/19 22 06/14/2021 HEPAT IC FUNCT ION PANEL albumin/glob ulin ratio 2.0 (calc ) 1.0-2. 5 normal Not Available [address], [address], 06/14/2021 03:41:31 06/14/19 22 06/14/2021 HEPAT IC FUNCT ION PANEL bilirubin, total 0.6 mg/dL 0.2-1. 2 normal Not Available [address], [address], 06/14/2021 03:41:31 06/14/19 22 06/14/2021 HEPAT IC FUNCT ION PANEL bilirubin, direct 0.1 mg/dL < or = 0.2 normal Not Available [address], [address], 06/14/2021 03:41:31 06/14/19 22 06/14/2021 HEPAT IC FUNCT ION PANEL bilirubin, indirect 0.5 mg/dL _(flavia c) 0.2-1. 2 normal Not Available [address] [place], [address], 06/14/2021 03:41:31 06/14/19 22 06/14/2021 HEPAT IC FUNCT ION PANEL alkaline phosphatase 67 U/L 37-153 normal Not Available [facility] [address] [address] [place], [address], 06/14/2021 03:41:31 06/14/19 22 06/14/2021 HEPAT IC FUNCT ION PANEL AST 33 U/L 10-35 normal Not Available [address] [address] [place], [address], 06/14/2021 03:41:31 06/14/19 22 06/14/2021 HEPAT IC FUNCT ION PANEL ALT 20 U/L 6-29 normal Not Available [address], [address], 06/14/2021 03:41:31 06/14/19 22 06/14/2021 BASIC METAB OLIC PANEL glucose 99 mg/dL 65-99 normal Fasti ng refer ence inter laverne Not Available [address], [address], 06/14/2021 03:41:31 06/14/19 22 06/14/2021 BASIC METAB OLIC PANEL urea nitrogen (BUN) 14 mg/dL 7-25 normal Not Available [address], [address], 06/14/2021 03:41:31 06/14/19 22 06/14/2021 BASIC METAB OLIC PANEL creatinine 0.68 mg/dL 0.60-0 .93 normal For patie nts >49 years of age, the refer ence limit for Creat inine is appro ximat orion 13% highe r for peopl e ident ified as Afric an-Am kathy n. Not Available [address], [address], 06/14/2021 03:41:31 06/14/19 22 06/14/2021 BASIC METAB OLIC PANEL eGFR non-afr. cuban 86 mL/mi n/1.7 3m2 > or = 60 normal Not Available [address], [address], 06/14/2021 03:41:31 06/14/19 22 06/14/2021 BASIC METAB OLIC PANEL eGFR 100 mL/mi n/1.7 3m2 > or = 60 normal Not Available [address], [address], 06/14/2021 03:41:31 06/14/19 22 06/14/2021 BASIC METAB OLIC PANEL BUN/creatini ne ratio not applic able (calc ) 6-22 Not Available [address], [address], 06/14/2021 03:41:31 06/14/19 22 06/14/2021 BASIC METAB OLIC PANEL sodium 132 mmol/ L 135-14 6 low Not Available [address], [address], 06/14/2021 03:41:31 06/14/19 22 06/14/2021 BASIC METAB OLIC PANEL potassium 4.3 mmol/ L 3.5-5. 3 normal Not Available [address], [address], 06/14/2021 03:41:31 06/14/19 22 06/14/2021 BASIC METAB OLIC PANEL chloride 95 mmol/ L 98-110 low Not Available [address], [address], 06/14/2021 03:41:31 06/14/19 22 06/14/2021 BASIC METAB OLIC PANEL carbon dioxide 30 mmol/ L 20-32 normal Not Available [address], [address], 06/14/2021 03:41:31 06/14/19 22 06/14/2021 BASIC METAB OLIC PANEL calcium 10.3 mg/dL 8.6-10 .4 normal Not Available [address], [address], 06/14/2021 03:41:31 06/14/19 22 06/14/2021 LIPID PANEL , STAND PATT chol/HDLC ratio 2.7 (calc ) <5.0 normal Not Available [address], [address], 06/14/2021 03:41:30 06/14/19 22 06/14/2021 LIPID PANEL , STAND PATT cholesterol, total 203 mg/dL <200 high Not Available [address], [address], 06/14/2021 03:41:30 06/14/19 22 06/14/2021 LIPID PANEL , STAND PATT HDL cholesterol 75 mg/dL > or = 50 normal Not Available [address], [address], 06/14/2021 03:41:30 06/14/19 22 06/14/2021 LIPID PANEL , STAND PATT triglyceride s 55 mg/dL <150 normal Not Available [address], [address], 06/14/2021 03:41:30 06/14/19 22 06/14/2021 LIPID PANEL , STAND PATT LDL-choleste rol 114 mg/dL _(flavia c) high Refer ence range : <100 Elham able range <100 mg/dL for prima ry preve ntion ; <70 mg/dL for patie nts with CHD or diabe tic patie nts with > or = 2 CHD risk facto rs. LDL-C is now calcu lated using the [facility] fahad kelly, which is a valid ated novel metho d provi preston cedrick r accur acy than the Fried nestor equat ion in the estim ation of LDL-C . Abby n SS et al. ZORAN. 2013; 310(1 9): 2061- 2068 (http ://ed ucati on.Qu Reba brunoExpedite HealthCare. com/f aq/FA Q164) Not Available [facility] [facility] [address] [place], [address], 06/14/2021 03:41:30 06/14/19 22 06/14/2021 LIPID PANEL , STAND PATT non HDL cholesterol 128 mg/dL _(flavia c) <130 normal For patie nts with diabe yoni plus 1 major ASCVD risk facto r, treat ing to a non-H DL-C goal of <100 mg/dL (LDL- C of <70 mg/dL ) is consi stand a quintina pekarenai c optio n. Not Available [employer] [facility] [address], [place], [address], 06/14/2021 03:41:30 12/30/19 22 12/29/2021 LIPID PANEL [...] WILL NOT BE REPOR JIMBO. Not Available [facility] (Lab) [address] [place], [address], 12/29/2021 20:27:48 12/30/1912/29/2021 LIPID PANEL cholesterol 193 mg/dL 140-19 9 NIH ABENA NSUS RECOM MENDA TION FOR CHRISTIANE STERO L: ADULT CHILD LOW RISK: <200 <170 BORDE RLINE : <200- 239 ----- HIGH RISK: >240 >200 Not Available [facility] (Lab) [address] [place], [address], 12/29/2021 20:27:48 12/30/19 22 12/29/2021 LIPID PANEL triglyceride s 58 mg/dL 0-150 NIH ABENA NSUS REPOR T RECOM MENDA TION FOR TRIGL YCERI NAN: ADULT CHILD LOW RISK: <150 ----- BODER LINE: 150-1 99 ----- HIGH RISK: >200 ----- Not Available [facility] (Lab) [address] [place], [address], 12/29/2021 20:27:48 12/30/19 22 12/29/2021 LIPID PANEL HDL cholesterol 61 mg/dL 40- Not Available [facility] (Lab) [address] [place], [address], 12/29/2021 20:27:48 12/30/19 22 12/29/2021 HEPAT IC/LI SEJAL PANEL albumin 4.3 g/dL 3.0-4. 4 Not Available [facility] (Lab) [address] [place], [address], 12/29/2021 20:27:45 12/30/19 22 12/29/2021 HEPAT IC/LI SEJAL PANEL globulin 2.7 g/dL 2.6-4. 2 Not Available [facility] (Lab) [address] [place], [address], 12/29/2021 20:27:45 12/30/19 22 12/29/2021 HEPAT IC/LI SEJAL PANEL A/G ratio 1.6 ratio 1.0-2. 0 Not Available [facility] (Lab) [address] [place], [address], 12/29/2021 20:27:45 12/30/19 22 12/29/2021 HEPAT IC/LI SEJAL PANEL alkaline phosphatase 68 U/L 38-126 Not Available [facility] (Lab) [address] [place], [address], 12/29/2021 20:27:45 12/30/19 22 12/29/2021 HEPAT IC/LI SEJAL PANEL alanine aminotransfe rase 22 U/L 0-35 Not Available [facility] (Lab) [address] [place], [address], 12/29/2021 20:27:45 12/30/1912/29/2021 HEPAT IC/LI SEJAL PANEL aspartate aminotransfe rase 47 U/L 15-37 high Not Available [facility] (Lab) [address] [place], [address], 12/29/2021 20:27:45 12/30/1912/29/2021 HEPAT IC/LI SEJAL PANEL bilirubin, total 0.50 mg/dL 0.20-1 .30 Not Available [facility] (Lab) [address] [place], [address], 12/29/2021 20:27:45 12/30/1912/29/2021 HEPAT IC/LI SEJAL PANEL bilirubin, conjugated (direct) 0.00 mg/dL 0.00-0 .30 Not Available [facility] (Lab) [address] [place], [address], 12/29/2021 20:27:45 12/30/1912/29/2021 HEPAT IC/LI SEJAL PANEL biliurubin,u ncong. (indirect) 0.40 mg/dL 0.00-1 .1 Not Available [facility] (Lab) [address] [place], [address], 12/29/2021 20:27:45 12/30/19 22 12/29/2021 HEPAT IC/LI SEJAL PANEL total protein 7.0 g/dL 6.3-8. 2 Not Available [facility] (Lab) [address] [place], [address], 12/29/2021 20:27:45 12/30/19 22 12/29/2021 BASIC METAB OLIC PANEL glucose 102 mg/dL 70-99 high Not Available [facility] (Lab) [address] [place], [address], 12/29/2021 20:27:39 12/30/19 22 12/29/2021 BASIC METAB OLIC PANEL sodium 132 mmol/ L 137-14 5 low Not Available [facility] (Lab) [address] [place], [address], 12/29/2021 20:27:39 12/30/1912/29/2021 BASIC METAB OLIC PANEL potassium 4.4 mmol/ L 3.5-5. 1 Not Available [facility] (Lab) [address] [place], [address], 12/29/2021 20:27:39 12/30/1912/29/2021 BASIC METAB OLIC PANEL chloride 94 mmol/ L 98-107 low Not Available [facility] (Lab) [address] [place], [address], 12/29/2021 20:27:39 12/30/19 22 12/29/2021 BASIC METAB OLIC PANEL carbon dioxide 35 mmol/ L 22-30 high Not Available [facility] (Lab) [address] [place], [address], 12/29/2021 20:27:39 12/30/19 22 12/29/2021 BASIC METAB OLIC PANEL anion gap 7.4 mmol/ L 14-22 low Not Available [facility] (Lab) [address] [place], [address], 12/29/2021 20:27:39 12/30/19 22 12/29/2021 BASIC METAB OLIC PANEL BUN 21 mg/dL 8-19 high Not Available [facility] (Lab) [address] [place], [address], 12/29/2021 20:27:39 12/30/19 22 12/29/2021 BASIC METAB OLIC PANEL creatinine 0.70 mg/dL 0.66-1 .25 Not Available [facility] (Lab) [address] [place], [address], 12/29/2021 20:27:39 12/30/19 22 12/29/2021 BASIC METAB OLIC PANEL GFR >60 Refer ence Range : [place] GFR Healt hy Adult : >60 [...] or ethni c subgr oups, such as Hismo nics. Outsi de the valid ated ayala [...] s/kdo qi/gf r_cal culat or Not Available [facility] (Lab) [address] [place], [address], 12/29/2021 20:27:39 12/30/19 22 12/29/2021 BASIC METAB OLIC PANEL calcium 9.8 mg/dL 8.4-10 .2 Not Available [facility] (Lab) [address] [facility], [place], [address], 12/29/2021 20:27:39 01/27/20 22 01/27/2022 RENAL FUNCT ION PANEL glucose 90 mg/dL 65-99 normal Fasti ng refer ence inter laverne Not Available [address] [address] [place], [address], 01/27/2022 02:18:26 01/27/20 22 01/27/2022 RENAL FUNCT ION PANEL urea nitrogen (BUN) 18 mg/dL 7-25 normal Not Available [address], [address], 01/27/2022 02:18:26 01/27/20 22 01/27/2022 RENAL FUNCT ION PANEL creatinine 0.79 mg/dL 0.60-1 .00 normal Not Available [address], [address], 01/27/2022 02:18:26 01/27/20 22 01/27/2022 RENAL FUNCT [...] kdoqi /gfr% 5Fcal culat or Not Available [address] [address] [place], [address], 01/27/2022 02:18:26 01/27/20 22 01/27/2022 RENAL FUNCT ION PANEL BUN/creatini ne ratio not applic able (calc ) 6-22 Not Available [address] [address] [place], [address], 01/27/2022 02:18:26 01/27/20 22 01/27/2022 RENAL FUNCT ION PANEL sodium 136 mmol/ L 135-14 6 normal Not Available [address], [address], 01/27/2022 02:18:26 01/27/20 22 01/27/2022 RENAL FUNCT ION PANEL potassium 4.0 mmol/ L 3.5-5. 3 normal Not Available [address], [address], 01/27/2022 02:18:26 01/27/20 22 01/27/2022 RENAL FUNCT ION PANEL chloride 99 mmol/ L 98-110 normal Not Available [address], [address], 01/27/2022 02:18:26 01/27/20 22 01/27/2022 RENAL FUNCT ION PANEL carbon dioxide 30 mmol/ L 20-32 normal Not Available [address], [address], 01/27/2022 02:18:26 01/27/20 22 01/27/2022 RENAL FUNCT ION PANEL calcium 10.0 mg/dL 8.6-10 .4 normal Not Available [address], [address], 01/27/2022 02:18:26 01/27/20 22 01/27/2022 RENAL FUNCT ION PANEL phosphate ( phosphorus) 3.2 mg/dL 2.1-4. 3 normal Not Available [address], [address], 01/27/2022 02:18:26 01/27/20 22 01/27/2022 RENAL FUNCT ION PANEL albumin 4.4 g/dL 3.6-5. 1 normal Not Available [address], [address], 01/27/2022 02:18:26 07/14/19 23 07/13/2022 BASIC METAB OLIC PANEL sodium 133 mmol/ L 137-14 5 low Not Available [facility] (Lab) [address] [place], [address], 07/13/2022 20:27:40 07/14/19 23 07/13/2022 BASIC METAB OLIC PANEL potassium 3.9 mmol/ L 3.5-5. 1 Not Available [facility] (Lab) [address] [place], [address], 07/13/2022 20:27:40 07/14/19 23 07/13/2022 BASIC METAB OLIC PANEL chloride 96 mmol/ L 98-107 low Not Available [facility] (Lab) [address] [place], [address], 07/13/2022 20:27:40 07/14/19 23 07/13/2022 BASIC METAB OLIC PANEL carbon dioxide 30 mmol/ L 22-30 Not Available [facility] (Lab) [address] [place], [address], 07/13/2022 20:27:40 07/14/19 23 07/13/2022 BASIC METAB OLIC PANEL anion gap 10.9 mmol/ L 14-22 low Not Available [facility] (Lab) [address] [place], [address], 07/13/2022 20:27:40 07/14/19 23 07/13/2022 BASIC METAB OLIC PANEL glucose 93 mg/dL 70-99 Not Available [facility] (Lab) [address] [place], [address], 07/13/2022 20:27:40 07/14/19 23 07/13/2022 BASIC METAB OLIC PANEL BUN 14 mg/dL 8-19 Not Available [facility] (Lab) [address] [place], [address], 07/13/2022 20:27:40 04/07/13/2022 BASIC METAB OLIC PANEL creatinine 0.68 mg/dL 0.66-1 .25 Not Available [facility] (Lab) [address] [place], [address], 07/13/2022 20:27:40 07/14/19 23 07/13/2022 BASIC METAB OLIC PANEL GFR >60 Refer ence Range : [place] GFR Healt hy Adult : >60 [...] calcu lator is avail able on the [facility] websi te: [email or web address] :[email or web address] [email or web address] rg/pr emeliess kaleighal s/kdo qi/gf r_cal culat or Not Available [facility] (Lab) [address] [place], [address], 07/13/2022 20:27:40 07/14/1907/13/2022 BASIC METAB OLIC PANEL calcium 9.9 mg/dL 8.4-10 .2 Not Available [facility] (Lab) [address] [place], [address], 07/13/2022 20:27:40 07/14/19 23 07/13/2022 LIPID PANEL cholesterol 203 mg/dL 140-19 9 high NIH ABENA NSUS RECOM MENDA TION FOR CHRISTIANE STERO L: ADULT CHILD LOW RISK: <200 <170 BORDE RLINE : <200- 239 ----- HIGH RISK: >240 >200 Not Available [facility] (Lab) [address] [place], [address], 07/13/2022 20:27:44 07/14/19 23 07/13/2022 LIPID PANEL triglyceride s 60 mg/dL 0-150 NIH ABENA NSUS REPOR T RECOM MENDA TION FOR TRIGL YCERI NAN: ADULT CHILD LOW RISK: <150 ----- BODER LINE: 150-1 99 ----- HIGH RISK: >200 ----- Not Available [facility] (Lab) [address] [place], [address], 07/13/2022 20:27:44 07/14/19 23 07/13/2022 LIPID PANEL HDL cholesterol 79 mg/dL 40- Not Available [facility] (Lab) [address] [place], [address], 07/13/2022 20:27:44 07/14/19 23 07/13/2022 LIPID PANEL [...] WILL NOT BE REPOR JIMBO. Not Available [facility] (Lab) [address] [place], [address], 07/13/2022 20:27:44 07/14/19 23 07/13/2022 HEPAT IC/LI SEJAL PANEL alkaline phosphatase 61 U/L 38-126 Not Available [facility] (Lab) [address] [place], [address], 07/13/2022 20:29:03 07/14/19 23 07/13/2022 HEPAT IC/LI SEJAL PANEL alanine aminotransfe rase 25 U/L 0-35 Not Available [facility] (Lab) [address] [place], [address], 07/13/2022 20:29:03 07/14/19 23 07/13/2022 HEPAT IC/LI SEJAL PANEL aspartate aminotransfe rase 46 U/L 15-37 high Not Available [facility] (Lab) [address] [place], [address], 07/13/2022 20:29:03 07/14/19 23 07/13/2022 HEPAT IC/LI SEJAL PANEL bilirubin, total 0.50 mg/dL 0.20-1 .30 Not Available [facility] (Lab) [address] [place], [address], 07/13/2022 20:29:03 07/14/19 23 07/13/2022 HEPAT IC/LI SEJAL PANEL bilirubin, conjugated (direct) 0.00 mg/dL 0.00-0 .30 Not Available [facility] (Lab) [address] [place], [address], 07/13/2022 20:29:03 07/14/19 23 07/13/2022 HEPAT IC/LI SEJAL PANEL biliurubin,u ncong. (indirect) 0.30 mg/dL 0.00-1 .1 Not Available [facility] (Lab) [address] [place], [address], 07/13/2022 20:29:03 07/14/19 23 07/13/2022 HEPAT IC/LI SEJAL PANEL total protein 7.3 g/dL 6.3-8. 2 Not Available [facility] (Lab) [address] [place], [address], 07/13/2022 20:29:03 07/14/19 23 07/13/2022 HEPAT IC/LI SEJAL PANEL albumin 4.4 g/dL 3.0-4. 4 Not Available [facility] (Lab) [address] [place], [address], 07/13/2022 20:29:03 07/14/19 23 07/13/2022 HEPAT IC/LI SEJAL PANEL globulin 2.9 g/dL 2.6-4. 2 Not Available [facility] (Lab) [address] [place], [address], 07/13/2022 20:29:03 07/14/19 23 07/13/2022 HEPAT IC/LI SEJAL PANEL A/G ratio 1.5 ratio 1.0-2. 0 Not Available [facility] (Lab) [address] [place], [address], 07/13/2022 20:29:03 Result Notes None recorded. 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 Not Available [facility] 3 03:22:42 Eruption 695302271 Completed Not Available [facility] 3 03:22:42 Abdominal mass 040448276 Completed Not Available [facility] 3 03:22:42 Low back pain 025824799 Active Not Available [facility] 3 03:22:42 Hyperlipid emia 45921241 Active Not Available [facility] 3 03:22:42 Essential hypertensi on 84922870 Active Not Available [facility] 3 03:22:42 Hyponatrem ia 62483387 Active 2021 Not Available [facility] 3 03:22:42 Problem Notes None recorded. Medical [...] completed Not Available Not Available Not Available [employer] 1.5 billion cell capsule Take 1 capsule every day by oral route as directed for 30 days. 08/30 completed Not Available Not Available Not Available [employer] COVID-19 Ag Self Test kit TEST DIRECTED TODAY 12/29 completed Not Available Not Available Not Available Vitals Date Recorded Body mass index (BMI) Body height Oxygen saturation Oxygen saturation in Arterial blood by Pulse oximetry Heart rate Body temperature Body weight Systolic blood pressure Diastolic blood pressure Provider Name and Address Organization Details Last Updated DateTime 2 19.1 kg/m2 170.18 cm 95 % 95 % 72 /min 97.1 [degF] 74062.2 7 g 126 mm[Hg] 80 mm[Hg] Not Available [employer] 3 03:19:00 Date Recorded Body height Body mass index (BMI) Body weight Body temperature Heart rate Respiratory rate Oxygen saturation Oxygen saturation in Arterial blood by Pulse oximetry Systolic blood pressure Diastolic blood pressure Provider Name and Address Organization Details Last Updated DateTime 3 170.18 cm 18.5 kg/m2 62754.6 g 96.7 [degF] 75 /min 16 /min 97 % 97 % 140 mm[Hg] 82 mm[Hg] Francesca Clements RN [facility] [employer] [facility] 3 15:55:29 Date Recorded Body height Provider Name an d Address Organization Details Last Updated DateTime 07/13/2022 170.18 cm Deanna Gutierrez MA [facility] [employer] [facility] 07/13/2022 12:45:49 Date Recorded Body height Body mass index (BMI) Body weight Body temperature Heart rate Respiratory rate Oxygen saturation Oxygen saturation in Arterial blood by Pulse oximetry Systolic blood pressure Diastolic blood pressure Provider Name and Address Organization Details Last Updated DateTime 3 170.18 cm 18.9 kg/m2 94184.1 8 g 96.1 [degF] 72 /min 16 /min 98 % 98 % 140 mm[Hg] 84 mm[Hg] Francesca Clements RN [facility] [employer] [facility] 3 09:09:54 Date Recorded Body mass index (BMI) Body height Oxygen saturation Oxygen saturation in Arterial blood by Pulse oximetry Heart rate Body temperature Body weight Systolic blood pressure Diastolic blood pressure Provider Name and Address Organization Details Last Updated DateTime 2 18.8 kg/m2 170.18 cm 97 % 97 % 81 /min 97.3 [degF] 31894.0 8 g 130 mm[Hg] 82 mm[Hg] Not Available [employer] 3 03:19:00 Social History Question Answer Notes LastModified by Organizat ion Details LastModified Time Tobacco Smoking Status Never Smoker Yasmin jones [facility] [employer] [facility] 11/29/2022 09:02:22 Are You Blind Or Do You Have Difficulty Seeing? No [email or web address] Information not available 11/29/2022 Is Blood Transfusion Acceptable In An Emergency? Yes [email or web address] Information not available 11/29/2022 What Is Your Level Of Caffeine Consumption? Occasional [id number] Information not available 05/17/2022 How Much Tobacco Do You Chew? None [id number] Information not available 05/17/2022 What Is Your Code Status? Full Code Information not available 11/29/2022 In The 14 Days Before Symptom Onset, Have You Had Close Contact With A Laboratory-confir med COVID-19 While That Case Was Ill? No [email or web address] Information not available 11/29/2022 In The 14 Days Before Symptom Onset, Have You Had Close Contact With A Person Who Is Under Investigation For COVID-19 While That Person Was Ill? No [email or web address] Information not available 11/29/2022 Are You Deaf Or Do You Have Serious Difficulty Hearing? No [email or web address] Information not available 11/29/2022 What Type Of Diet Are You Following? REGULAR Information not available 07/10/2022 Which Illicit Or Recreational Drugs Have You Used? None [email or web address] Information not available 11/29/2022 How Many Days Of Moderate To Strenuous Exercise, Like A Brisk Walk, Did You Do In The Last 7 Days? 4 [email or web address] Information not available 11/29/2022 On Those Days That You Engage In Moderate To Strenuous Exercise, How Many Minutes, On Average, Do You Exercise? 60 [email or web address] Information not available 11/29/2022 Have There Been Any Changes To Your Family Or Social Situation? No [email or web address] Information no t available 11/29/2022 Do You Use Insect Repellent Routinely? Yes [email or web address] Information not available 11/29/2022 Where Do You Live? [facility] [email or web address] Information not available 11/29/2022 Do You Have A Medical Power Of Oil Transport Driver? Yes [email or web address] Information not available 11/29/2022 How Many Children Do You Have? 0 Information not available 11/29/2022 Do You Have Any Pets? Yes [email or web address] Information not available 11/29/2022 What Is Your Relationship Status? Information not available 07/10/2022 Do You Use Your Seat Belt Or Car Seat Routinely? Yes [email or web address] Information not available 11/29/2022 Do You Have Smoke And Carbon Monoxide Detectors In Your Home? Yes [email or web address] Information not available 11/29/2022 Are There Any Smokers In Your House? No [email or web address] Information not available 11/29/2022 How Much Tobacco Do You Smoke? No [id number] Information not available 05/17/2022 Do You Participate In Social Media? Yes Information not available 11/29/2022 What Types Of Sporting Activities Do You Participate In? Yoga, [place] Information not available 11/29/2022 Do You Use Sunscreen Routinely? Yes [email or web address] Information not available 11/29/2022 Have You Recently Traveled Abroad? No [email or web address] Information not available 11/29/2022 Do You Have Difficulty Walking Or Climbing Stairs? No [email or web address] Information not available 11/29/2022 Sex: Unknown Functional Status Question Answer Note LastModified by [employer] Details LastModified Time Do you use any illicit or recreational drugs? No Information not available 11/29/2022 What is your level of alcohol consumption? Occasional [id number] Information not available 05/17/2022 Do you or have you ever used smokeless tobacco? Never used smokeless tobacco [id number] Information not available 05/17/2022 Do you have transportation difficulties? No [email or web address] Information not available 11/29/2022 Are you able to walk? [email or web address] Information not available 11/29/2022 Do you have difficulty doing errands alone? No [email or web address] Information not available 11/29/2022 Are you able to care for yourself? Yes [email or web address] Information n ot available 11/29/2022 What is your occupation? retired [email or web address] Information not available 11/29/2022 Do you have difficulty dressing or bathing? No Information not available 11/29/2022 Do you or have you ever used e-cigarettes or vape? Never used electronic cigarettes [email or web address] Information not available 11/29/2022 What is your exercise level? Moderate [id number] Information not available 05/17/2022 Mental Status Question Answer Note LastModified by [email or web address] ion Details LastModified Time Do you feel stressed (tense, restless, nervous, or anxious, or unable to sleep at night)? [id number] [email or web address] Information not available 11/29/2022 Do you have difficulty concentrating, remembering or making decisions? No [email or web address] Information no t available 11/29/2022 Family History Relationship Description Onset Age of this Age Resolved Age Notes LastModified by Organization Details LastModified Time Mother Alzheimer's disease [id number] Not available 05/17/2022 03:14:42 Medical History Condition Response ARTHRITIS Y HIGH CHOLESTEROL / HYPERLIPIDEMIA Y HYPERTENSION Y Gynecological History Statement/Question Response If Post Menopausal, Age at Menopause 42 Date of Last Colonoscopy Most Recent Mammogram Most Recent Bone Density Obstetrics History GPAL:G 2 P 0 0 2 0 Type Value Induced 2 Total 2 Immunizations Vaccine Type Date Status Note Provider Nam e and Address Organization Details Recorded Time Influenza, high-dose, quadrivalent, PF 3 completed Francesca Carroll, CARLOS [address] [facility], [facility] [address], [place], [address], [facility] [employer] 11/29/2022 09:30:26 COVID-19, mRNA, LNP-S, PF, 100 mcg/0.5mL dose or 50 mcg/0.25mL dose 1 completed Not Available [facility] 05/17/2022 03:31:42 COVID-19, mRNA, LNP-S, PF, 100 mcg/0.5mL dose or 50 mcg/0.25mL dose 1 completed Not Available [facility] 05/17/2022 03:31:42 Influenza, split virus, quadrivalent, preservative 0 completed Not Available [facility] 05/17/2022 03:31:42 Influenza, split virus, quadrivalent, preservative 7 completed Not Available [facility] 05/17/2022 03:31:42 zoster live 1 completed Not Available [facility] 05/17/2022 03:31:42 Tdap 0 completed Not Available [facility] 05/17/2022 03:31:42 Influenza, high-dose, trivalent, PF 9 completed Not Available [facility] 05/17/2022 03:31:42 Influenza, high-dose, trivalent, PF 8 completed Not Available [facility] 05/17/2022 03:31:42 Pneumococcal conjugate PCV 13 7 completed Not Available [facility] 05/17/2022 03:31:42 Influenza, high-dose, trivalent, PF 7 completed Not Available [facility] 05/17/2022 03:31:42 pneumococcal polysaccharide PPV23 4 completed Not Available [facility] 05/17/2022 03:31:43 Influenza, split virus, trivalent, PF 3 completed Not Available [facility] 05/17/2022 03:31:43 Past Encounters Encounter ID Performer Location Encounter Start Date Encounter Closed Date Diagnosis/Indication Diagnosis SNOMED-CT Code Diagnosis ICD10 Code [id number] [address] [place] [address] 06/21/2020 00:00:00 06/21/2020 13:10:06 [id number] Oliva Matthews MD [address] [place] [address] 12/23/2020 00:00:00 12/23/2020 12:59:58 [id number] Oliva Matthews MD [address] [place] [address] 06/07/2021 00:00:00 06/07/2021 14:29:12 [id number] [facility] [address] [place] [address] 12/29/2021 00:00:00 12/29/2021 11:39:04 [id number] Francesca Carroll NP [address] [address] 07/10/2022 15:42:51 07/10/2022 17:47:19 Essential hypertension 34591467 I10 Atenolol 50 mg - chlorthali done 25 mg po daily.Salt sparingly. Hyperlipidemia 50242940 E78.5 Simvastati n 20 mg po nightly. Osteoarthritis of hip 23 1109999 M16.9 CBD oil under tongue. CBD cream and rub in. Voltaren gel otc. Low back pain [id number] M54.50 Flares off and on from time to time. [id number] Francesca Carroll NP [facility] [address] 07/13/2022 11:13:42 07/13/2022 12:48:08 [id number] Francesca Carroll NP [facility]_[address] [address] 11/29/2022 09:01:27 11/29/2022 09:30:42 Essential hypertension 56245114 I10 Atenolol 50 mg - chlorthali done 25 mg po daily.Salt sparingly. Hyperlipidemia 44984042 E78.5 Simvastati n 20 mg po nightly. Osteoarthritis of hip 23 2477351 M16.9 CBD oil under tongue. CBD cream and rub in. Voltaren gel otc. Low back pain 014396001 M54.50 Flares off and on from time to time. Administra tion of influenza vaccine [id number] Z23 flu shot high dose. Administra tion of tetanus vaccine 624222301 Z23 will get Td on next visit. Health Concerns Section Related Observation LastModified by Organization Detai ls LastModified Time None Recorded Concern Status LastModified by Organization Details LastModified Time None Recorded Advance Directives Directive None Recorded Payers Encounter Date Sequence Insurance Name Policy Number Policy Cancino Covered Member ID Cancino Member ID Guarantor Name 07/10/2022 1 [facility] (MEDICARE REPLACEMENT/A DVANTAGE - PPO) [id number] Daxa Piña [id number] Dxaa Piña 07/13/2022 1 [facility] (MEDICARE REPLACEMENT/A DVANTAGE - PPO) [id number] Daxa Piña [id number] Daxa Piña 11/29/2022 1 [facility] (MEDICARE REPLACEMENT/A DVANTAGE - PPO) [id number] Daxa Piña [id number] Daxa Piña Notes Date Note Type Note Provider Name and Address Organization Details Recorded Time 07/10/2022 text/html Here for new patient appt. Transfer from [facility]. States she is feeling well.Doesn't wish to have colonoscopy.Act grayson with yoga Francesca Carroll NP [address], [place], [address], [employer] 07/11/2022 07:36:33 11/29/2022 text/html Here for follow up. Lipid- low fat diet.htn- stable Francesca Carroll NP [address], [place], [address], [employer] 11/29/2022 09:32:42 OBGyn Episode No OBEpisode recorded.
--- NOTE | 2024-08-14 08:48 | EST_ITS ---
Patient Info Name: Daxa Piña Age: 79 years : 1945 Gender: Female Ht: 67 in Wt: 115 lbs BSA: 1.56 m2 Exam Date: 08/14/2024 8:48 AM Patient Status: O Admit Date: 08/14/2024 Exam Type: CA stress keenan w NM A regadenoson stress test was performed. Staff Referring Physician: Mo Dumont DO Attending Provider: Mo Dumont DO Exercise Technologist: Aury Vitale Exercise Physician: Mo Dumont DO Summary 1. 1. Negative lexiscan stress test for ischemic ST changes by ECG criteria. 2. 2. Baseline hypertension. 3. 3. Nuclear scan to follow and will be reported separately. Please correlate with it. 4. 4. Patient informed of the above results. Protocol: Lexiscan Stress ECG Details Stage: REST Duration (min): 6 min : 26 sec HR (bpm): 64 SBP (mmHg): 150 DBP (mmHg): 82 Stage: REST Duration (min): 9 min : 29 sec HR (bpm): 67 SBP (mmHg): 150 DBP (mmHg): 82 Stage: STAGE 1 Duration (min): 0 min : 59 sec HR (bpm): 73 SBP (mmHg): 153 DBP (mmHg): 84 Stage: RECOVERY Duration (min): 1 min : 0 sec HR (bpm): 83 SBP (mmHg): 137 DBP (mmHg): 77 Stage: RECOVERY Duration (min): 2 min : 0 sec HR (bpm): 83 SBP (mmHg): 137 DBP (mmHg): 77 Stage: RECOVERY Duration (min): 3 min : 0 sec HR (bpm): 85 SBP (mmHg): 123 DBP (mmHg): 63 Stage: RECOVERY Duration (min): 3 min : 3 sec HR (bpm): 85 SBP (mmHg): 123 DBP (mmHg): 63 Rest HR: 67 bpm Peak HR: 85 bpm Rest Sys BP: 150 mmHg Peak Sys BP: 153 mmHg Max Pred HR: 143 bpm % Max Pred HR: 59 % Target HR: 122 bpm Max RPP: 13,005 bpm*mmHg Termination Reason: Completed protocol Cardiac Symptoms: Shortness of breath Total Time: 1 min : 0 sec Rest Os BP: 82 mmHg Peak So BP: 84 mmHg Total Dose: 0.4 mg Resting ECG Sinus rhythm, cannot r/o septal infarct, age indeterminate. Stress ECG No ST changes. Arrhythmias None. Report Signatures
== END 2024-08-14 08:39 | disposition home or self-care (01) ==
PROVIDERS: PCP Nurse Practitioner Family; Visit Provider Internal Medicine Cardiovascular Disease
DX: R06.09 Other forms of dyspnea (principal)
CPT/HCPCS: 78452; 93017; A9502; J2785

== ENCOUNTER 2024-09-11 12:00 | Outpatient (CLI) | payer MEDICARE, SELFPAY ==
[2024-09-11 13:54] LABS: Basophils Absolute Auto 0.1 K/mm3 (0.0-0.1); Basophils Percent Auto 1.3 % (0.2-1.2); Eosinophils Absolute Auto 0.1 K/mm3 (0-0.3); Eosinophils Percent Auto 2.7 % (0-4.4); Hematocrit 38.6 % (37.0-47.0); Hemoglobin 12.5 g/dL (12.0-15.0); Immature Granulocyte Absolute 0.01 K/mm3 (0.00-0.031); Immature Granulocyte Percent A 0.2 % (0-0.5); Lymphocytes Absolute Auto 1.73 K/mm3 (0.9-3.2); Lymphocytes Percent Auto 33.3 % (18.3-44.2); Mean Corpuscular HGB Conc 32.4 g/dl (32-36); Mean Corpuscular Hemoglobin 30.3 pg (26-34); Mean Corpuscular Volume 93.7 fl (80-100); Mean Platelet Volume 9.2 fl (7.4-10.4); Monocytes Absolute Auto 0.5 K/mm3 (0.1-0.6); Monocytes Percent Auto 9.6 % (2.6-8.5); Neutrophils Absolute Auto 2.7 K/mm3 (1.3-6.7); Neutrophils Percent Auto 52.9 % (45.5-73.1); Platelet Count Result 243 k/mm3 (150-375); Red Blood Count 4.12 M/mm3 (4.2-5.4); Red Cell Distribution Width 12.9 % (11.5-14.5); White Blood Count 5.2 K/mm3 (4.5-10.0)
[2024-09-11 14:05] LABS: INR 0.9; Prothrombin Time 12.5 Seconds (11.1-14.7)
[2024-09-11 14:06] LABS: Partial Thromboplastin Time 32.4 Seconds (22.3-36.8)
[2024-09-11 14:07] LABS: Urine Cotinine NEGATIVE
[2024-09-11 14:21] LABS: Add Urine Microscopic? YES; Appearance Urine Clear (Clear); Bacteria Urine None Seen /hpf; Bilirubin Urine Negative (Negative); Blood Urine Trace (Negative); Color Urine Yellow (Yellow); Glucose Urine UA Negative (Negative); Ketones Urine Negative (Negative); Leukocyte Esterase Ur 1+ LEU/UL (Negative); Need Manual Microscopic Reviewed; Nitrate Urine Negative (Negative); Non Pathogenic Casts 0-2; Protein Urine Negative (Negative); RBC Urine 0-2 /hpf (0-2); Squamous Epithelial Cell Urine None Seen /hpf (Few); Urobilinogen Urine 0.2 mg/dL (<2.0); WBC Urine 0-5 /hpf (0-3); pH Urine 6.5 (5.0-9.0)
[2024-09-11 15:02] LABS: Hemoglobin A1C. 5.7 % (<5.7)
[2024-09-11 15:22] LABS: Albumin Level 4.7 g/dL (3.5-5.1); Anion Gap 10 mmol/L (4-12); Blood Urea Nitrogen 16 mg/dL (7-17); Calcium 10.1 mg/dL (8.4-10.2); Carbon Dioxide 27 mmol/L (22-30); Chloride 97 mmol/L (98-107); Estimated Glomerular Filt Rate > 60; Glucose 90 mg/dL (65-110); Potassium 3.6 mmol/L (3.4-5.0); Sodium 134 mmol/L (137-145)
[2024-09-11 15:24] LABS: MRSA (PCR) NOT DETECTED (NOT DETECTE)
== END 2024-09-11 12:01 | disposition home or self-care (01) ==
LOC: ANHSURGERY 12:05
PROVIDERS: PCP Nurse Practitioner Family; Visit Provider Orthopaedic Surgery
DX: Z01.812 Encounter for preprocedural laboratory examination (principal); M16.11 Unilateral primary osteoarthritis, right hip
CPT/HCPCS: 80048; 80307; 81001; 82040; 83036; 85025; 85610; 85730; 86850; 86900; 86901; 87086; 87641

== ENCOUNTER 2024-09-24 00:52 | Day surgery (SDC) | payer MEDICARE, SELFPAY ==
[2024-09-11 12:27] VITALS: BP 168/83; PULSE 72; RESP 16; TEMP 36.9; O2SAT 97; BMI 19.3
--- NOTE | 2024-09-11 12:51 | PC.NURSE ---
Report to the Outpatient Waiting Room, entrance under the green pavilion located off [facility], at time ___6:00AM____ on date ___09/24/24____. Planned Procedure Time: ___7:30AM .? Time changes happen often and if your time is changed the preop area will call you the afternoon before. - You and your visitor will be asked to self-screen and do not enter if you have any COVID symptoms. Please call surgeon if you need to reschedule. - A mask is optional within the hospital at this time. Patients may have clear liquids (water, carbonated beverages, clear teas, apple juice) until 3 hours prior to surgery (4:30AM) with a maximum of 20 ounces. - No food from midnight until time of surgery and no smoking, or chewing tobacco (or any form of nicotine). No chewing gum, candy or mints. Take only the following medications with a SIP of water on the morning of surgery: NONE DO NOT STOP ANY OF YOUR OTHER PRESCRIPTION MEDICATIONS PRIOR TO SURGERY EXCEPT THE FOLLOWING Medications to discontinue per physician HOLD VITAMINS/SUPPLEMENTS 7 DAYS PRE-OP PER DR HANSEN Date to take last dose 09/16/24 Please no make-up, nail swedish, hairspray, perfume, deodorant, or body powder the day of surgery.? No jewelry (including any body piercings) or valuables the day of surgery, leave them at home.? Please take a shower or bath the night before, or the morning of, surgery with an antibacterial soap.? Wear comfortable, loose fitting clothing.? - Jewelry must be removed prior to entering the operating room.? Rings and piercings that are not removed may be cut off. - The hospital will not accept responsibility for valuables.? - Please leave all valuables, including medications, at home the day of surgery. If you are going home after surgery, a licensed tractor trailer driver must drive you home.? - NO public transportation without another adult if you receive anesthesia. - We recommend that an adult stay with you for 24 hours following discharge. - We also recommend that you do not drive, make important decision, drink alcoholic beverages, or take any drugs that were not prescribed by your health care provider for at least 24 hours after your discharge time. Follow any additional instructions given to you from your surgeon. Telephone instructions given to ____PATIENT and asked if any additional questions and then verbalized understanding. Patient advised to call surgeon office or pre surgery nurse liaison [phone] if any additional questions.
[2024-09-24] VITALS (14 sets, daily range): BP systolic 135–173; BP diastolic 69–85; PULSE 74–95; RESP 12–20; TEMP 35.6–36.7; O2SAT 94–100; BMI 19.3
--- NOTE | ~2024-09-24 | XR_ITS ---
EXAMINATION: XR hip RT min 2V DATE: 09/24/2024 11:14 INDICATION: Postoperative evaluation TECHNIQUE: 2 views of the right foot were performed FINDINGS: There is a right total hip arthroplasty in expected perioperative position. Subcutaneous g as with soft tissue swelling are consistent with recent surgery. Medial to the hardware within the bony pelvis on AP view is a 22 x 52 mm focus of mixed density, with in the expected region of the obturator internus muscle. This may be related to the recent intervention, for which clinical correlation is needed. IMPRESSION: 22 x 52 mm well-circumscribed focus of mixed density within the expected region of the ob turator internus muscle for which clinical correlation is needed. Otherwise, expected perioperative appearance of a right total hip arthroplasty, as detailed above. Reviewed, dictated and finalized at location A. IMPRESSION: 22 x 52 mm well-circumscribed focus of mixed density within the exp ected region of the obturator internus muscle for which clinical correlation is needed. Otherwise, expected perioperative appearance of a right total hip arthroplasty, as detailed above.
--- OUTSIDE RECORDS SUMMARY | 2024-09-24 00:56 | XMS_ITS | Data Portability ---
Author Organization [place] - [facility] [place], Main Office Address [address] [place] [address] Assessment No assessment recorded. Plan of Treatment Reminders Order Date Submit Date Provider Last Modified By Organization Details Last Modified Time Details Appointments None recorded. Lab BMP, serum or plasma 2022 023 [facility], [address] [place], [address], 3 20:27:40 lipid panel, serum 2022 023 [facility], [address] [place], [address], 3 20:27:44 hepatic function panel, serum 2022 023 [facility], [address] [place], [address], 20:27:47 Referral None recorded. Procedures None recorded. Surgeries None recorded. Imaging None recorded. Medication Orders None recorded. Patient TargetsNo targets recorded. Patient Instructions Encounter Date Encounter Id Patient Instructions Last Modified By Organization Details Last Modified Time 07/10/2022 [id number] FU in 6 mo for htn, lipid, back/hip/hand pain Not available 07/11/2022 07:36:11 11/29/2022 [id number] 6 mo fu htn, lipid. Not available 11/29/2022 09:25:11 Reason for Referral None Reported. Results Created Date Observation Date Name Description Value Unit Range Abnormal Flag Note LastModifiedBy Organization Detail LastModifiedTime 06/14/19 22 06/14/2021 HEPAT IC FUNCT ION PANEL protein, total 6.9 g/dL 6.1-8. 1 normal Not Available [address], [address], 06/14/2021 03:41:31 06/14/19 22 06/14/2021 HEPAT IC FUNCT ION PANEL albumin 4.6 g/dL 3.6-5. 1 normal Not Available [address], [address], 06/14/2021 03:41:31 06/14/19 22 06/14/2021 HEPAT IC FUNCT ION PANEL globulin 2.3 g/dL_ (calc ) 1.9-3. 7 normal Not Available [address], [address], 06/14/2021 03:41:31 06/14/19 22 06/14/2021 HEPAT IC FUNCT ION PANEL albumin/glob ulin ratio 2.0 (calc ) 1.0-2. 5 normal Not Available [address], [address], 06/14/2021 03:41:31 06/14/19 22 06/14/2021 HEPAT IC FUNCT ION PANEL bilirubin, total 0.6 mg/dL 0.2-1. 2 normal Not Available [address], [address], 06/14/2021 03:41:31 06/14/19 22 06/14/2021 HEPAT IC FUNCT ION PANEL bilirubin, direct 0.1 mg/dL < or = 0.2 normal Not Available [address], [address], 06/14/2021 03:41:31 06/14/19 22 06/14/2021 HEPAT IC FUNCT ION PANEL bilirubin, indirect 0.5 mg/dL _(flavia c) 0.2-1. 2 normal Not Available [address] [place], [address], 06/14/2021 03:41:31 06/14/19 22 06/14/2021 HEPAT IC FUNCT ION PANEL alkaline phosphatase 67 U/L 37-153 normal Not Available [address] [address] [place], [address], 06/14/2021 03:41:31 06/14/19 22 06/14/2021 HEPAT IC FUNCT ION PANEL AST 33 U/L 10-35 normal Not Available [address] [address] [place], [address], 06/14/2021 03:41:31 06/14/19 22 06/14/2021 HEPAT IC FUNCT ION PANEL ALT 20 U/L 6-29 normal Not Available [address], [address], 06/14/2021 03:41:31 06/14/19 22 06/14/2021 BASIC METAB OLIC PANEL glucose 99 mg/dL 65-99 normal Fasti ng refer ence inter laverne Not Available [address], [address], 06/14/2021 03:41:31 06/14/19 22 06/14/2021 BASIC METAB OLIC PANEL urea nitrogen (BUN) 14 mg/dL 7-25 normal Not Available [address], [address], 06/14/2021 03:41:31 06/14/19 22 06/14/2021 BASIC METAB OLIC PANEL creatinine 0.68 mg/dL 0.60-0 .93 normal For patie nts >49 years of age, the refer ence limit for Creat inine is appro ximat orion 13% highe r for peopl e ident ified as Afric an-Am kathy n. Not Available [address], [address], 06/14/2021 03:41:31 06/14/19 22 06/14/2021 BASIC METAB OLIC PANEL eGFR non-afr. uruguayan 86 mL/mi n/1.7 3m2 > or = 60 normal Not Available [address], [address], 06/14/2021 03:41:31 06/14/19 22 06/14/2021 BASIC METAB OLIC PANEL eGFR 100 mL/mi n/1.7 3m2 > or = 60 normal Not Available [address], [address], 06/14/2021 03:41:31 06/14/19 22 06/14/2021 BASIC METAB OLIC PANEL BUN/creatini ne ratio not applic able (calc ) 6-22 Not Available [address], [address], 06/14/2021 03:41:31 06/14/19 22 06/14/2021 BASIC METAB OLIC PANEL sodium 132 mmol/ L 135-14 6 low Not Available [address], [address], 06/14/2021 03:41:31 06/14/19 22 06/14/2021 BASIC METAB OLIC PANEL potassium 4.3 mmol/ L 3.5-5. 3 normal Not Available [address], [address], 06/14/2021 03:41:31 06/14/19 22 06/14/2021 BASIC METAB OLIC PANEL chloride 95 mmol/ L 98-110 low Not Available [address], [address], 06/14/2021 03:41:31 06/14/19 22 06/14/2021 BASIC METAB OLIC PANEL carbon dioxide 30 mmol/ L 20-32 normal Not Available [address] [place], [address], 06/14/2021 03:41:31 06/14/19 22 06/14/2021 BASIC METAB OLIC PANEL calcium 10.3 mg/dL 8.6-10 .4 normal Not Available [address], [address], 06/14/2021 03:41:31 06/14/19 22 06/14/2021 LIPID PANEL , STAND PATT chol/HDLC ratio 2.7 (calc ) <5.0 normal Not Available [address], [address], 06/14/2021 03:41:30 06/14/19 22 06/14/2021 LIPID PANEL , STAND PATT cholesterol, total 203 mg/dL <200 high Not Available [address], [address], 06/14/2021 03:41:30 06/14/19 22 06/14/2021 LIPID PANEL , STAND PATT HDL cholesterol 75 mg/dL > or = 50 normal Not Available [address], [address], 06/14/2021 03:41:30 06/14/19 22 06/14/2021 LIPID PANEL , STAND PATT triglyceride s 55 mg/dL <150 normal Not Available [address], [address], 06/14/2021 03:41:30 06/14/19 22 06/14/2021 LIPID PANEL , STAND PATT LDL-choleste rol 114 mg/dL _(flavia c) high Refer ence range : <100 Elham able range <100 mg/dL for prima ry preve ntion ; <70 mg/dL for patie nts with CHD or diabe tic patie nts with > or = 2 CHD risk facto rs. LDL-C is now calcu lated using the [facility] n-Hop kins calcu latio n, which is a valid ated novel metho d provi preston cedrick r accur acy than the Fried nestor equat ion in the estim ation of LDL-C . Abby n SS et al. ZORAN. 2013; 310(1 9): 2061- 2068 (http ://ed ucati on.Qu Reba venegas VocalizeLocal. com/f aq/FA Q164) Not Available [facility] [address] [place], [address], 06/14/2021 03:41:30 06/14/19 22 06/14/2021 LIPID PANEL , STAND PATT non HDL cholesterol 128 mg/dL _(flavia c) <130 normal For patie nts with diabe yoni plus 1 major ASCVD risk facto r, treat ing to a non-H DL-C goal of <100 mg/dL (LDL- C of <70 mg/dL ) is consi live a simone gomez optio n. Not Available [facility] [address] [address], [place], [address], 06/14/2021 03:41:30 12/30/19 22 12/29/2021 LIPID PANEL [...] WILL NOT BE REPOR JIMBO. Not Available [facility] (Lab) [address] [place], [address], 12/29/2021 20:27:48 12/30/19 22 12/29/2021 LIPID PANEL cholesterol 193 mg/dL 140-19 9 NIH ABENA NSUS RECOM MENDA TION FOR CHRISTIANE STERO L: ADULT CHILD LOW RISK: <200 <170 BORDE RLINE : <200- 239 ----- HIGH RISK: >240 >200 Not Available [facility] (Lab) [address] [place], [address], 12/29/2021 20:27:48 12/30/19 22 12/29/2021 LIPID PANEL triglyceride s 58 mg/dL 0-150 NIH ABENA NSUS REPOR T RECOM MENDA TION FOR TRIGL YCERI NAN: ADULT CHILD LOW RISK: <150 ----- BODER LINE: 150-1 99 ----- HIGH RISK: >200 ----- Not Available [facility] (Lab) [address] [place], [address], 12/29/2021 20:27:48 12/30/19 22 12/29/2021 LIPID PANEL HDL cholesterol 61 mg/dL 40- Not Available [facility] (Lab) [address] [place], [address], 12/29/2021 20:27:48 12/30/19 22 12/29/2021 HEPAT IC/LI SEJAL PANEL albumin 4.3 g/dL 3.0-4. 4 Not Available [facility] (Lab) [address] [place], [address], 12/29/2021 20:27:45 12/30/19 22 12/29/2021 HEPAT IC/LI SEJAL PANEL globulin 2.7 g/dL 2.6-4. 2 Not Available [facility] (Lab) [address] [place], [address], 12/29/2021 20:27:45 12/30/19 22 12/29/2021 HEPAT IC/LI SEJAL PANEL A/G ratio 1.6 ratio 1.0-2. 0 Not Available [facility] (Lab) [address] [place], [address], 12/29/2021 20:27:45 12/30/19 22 12/29/2021 HEPAT IC/LI SEJAL PANEL alkaline phosphatase 68 U/L 38-126 Not Available [facility] (Lab) [address] [place], [address], 12/29/2021 20:27:45 12/30/19 22 12/29/2021 HEPAT IC/LI SEJAL PANEL alanine aminotransfe rase 22 U/L 0-35 Not Available [facility] (Lab) [address] [place], [address], 12/29/2021 20:27:45 12/30/19 22 12/29/2021 HEPAT IC/LI SEJAL PANEL aspartate aminotransfe rase 47 U/L 15-37 high Not Available [facility] (Lab) [address] [facility] [place], [address], 12/29/2021 20:27:45 12/30/19 22 12/29/2021 HEPAT IC/LI SEJAL PANEL bilirubin, total 0.50 mg/dL 0.20-1 .30 Not Available [facility] (Lab) [address] [place], [address], 12/29/2021 20:27:45 12/30/19 22 12/29/2021 HEPAT IC/LI SEJAL PANEL bilirubin, conjugated (direct) 0.00 mg/dL 0.00-0 .30 Not Available [facility] (Lab) [address] [place], [address], 12/29/2021 20:27:45 12/30/19 22 12/29/2021 HEPAT IC/LI SEJAL PANEL biliurubin,u ncong. (indirect) 0.40 mg/dL 0.00-1 .1 Not Available [facility] (Lab) [address] [place], [address], 12/29/2021 20:27:45 12/30/19 22 12/29/2021 HEPAT IC/LI SEJAL PANEL total protein 7.0 g/dL 6.3-8. 2 Not Available [facility] (Lab) [address] [place], [address], 12/29/2021 20:27:45 12/30/19 22 12/29/2021 BASIC METAB OLIC PANEL glucose 102 mg/dL 70-99 high Not Available [facility] (Lab) [address] [place], [address], 12/29/2021 20:27:39 12/30/19 22 12/29/2021 BASIC METAB OLIC PANEL sodium 132 mmol/ L 137-14 5 low Not Available [facility] (Lab) [address] [place], [address], 12/29/2021 20:27:39 12/30/1912/29/2021 BASIC METAB OLIC PANEL potassium 4.4 mmol/ L 3.5-5. 1 Not Available [facility] (Lab) [address] [place], [address], 12/29/2021 20:27:39 12/30/19 22 12/29/2021 BASIC METAB OLIC PANEL chloride 94 mmol/ L 98-107 low Not Available [facility] (Lab) [address] [place], [address], 12/29/2021 20:27:39 12/30/19 22 12/29/2021 BASIC METAB OLIC PANEL carbon dioxide 35 mmol/ L 22-30 high Not Available [facility] (Lab) [address] [place], [address], 12/29/2021 20:27:39 12/30/19 22 12/29/2021 BASIC METAB OLIC PANEL anion gap 7.4 mmol/ L 14-22 low Not Available [facility] (Lab) [address] [place], [address], 12/29/2021 20:27:39 12/30/19 22 12/29/2021 BASIC METAB OLIC PANEL BUN 21 mg/dL 8-19 high Not Available [facility] (Lab) [address] [place], [address], 12/29/2021 20:27:39 12/30/1912/29/2021 BASIC METAB OLIC PANEL creatinine 0.70 mg/dL 0.66-1 .25 Not Available [facility] (Lab) [address] [place], [address], 12/29/2021 20:27:39 12/30/19 22 12/29/2021 BASIC METAB OLIC PANEL GFR >60 Refer ence Range : Helena ge GFR Healt hy Adult : >60 [...] or ethni c subgr oups, such as Hisal nics. Outsi de the valid ated ayala [...] able on the F websi te: https ://ww w.kid celestino.o rg/pr ofess ional s/kdo qi/gf r_cal culat or Not Available [facility] (Lab) [address] [place], [address], 12/29/2021 20:27:39 12/30/19 22 12/29/2021 BASIC METAB OLIC PANEL calcium 9.8 mg/dL 8.4-10 .2 Not Available [facility] (Lab) [address], [place], [address], 12/29/2021 20:27:39 01/27/20 22 01/27/2022 RENAL FUNCT ION PANEL glucose 90 mg/dL 65-99 normal Fasti ng refer ence inter laverne Not Available [facility] [address] [address] [place], [address], 01/27/2022 02:18:26 01/27/20 22 01/27/2022 RENAL FUNCT ION PANEL urea nitrogen (BUN) 18 mg/dL 7-25 normal Not Available [address] [address] [place], [address], 01/27/2022 02:18:26 01/27/20 22 01/27/2022 RENAL FUNCT ION PANEL creatinine 0.79 mg/dL 0.60-1 .00 normal Not Available [address] [address] [place], [address], 01/27/2022 02:18:26 01/27/20 22 01/27/2022 RENAL FUNCT ION PANEL eGFR 78 mL/mi n/1.7 3m2 > or = 60 normal The eGFR is based on the CKD-E PI 2020 equat ion. To calcu late the new eGFR from a previ ous Creat inine or Cysta tin C resul t, go to https ://salena tirado.anjum paredes/candice hooker s/ kdoqi /gfr% 5Fcal culat or Not Available [facility] [address] [address] [place], [address], 01/27/2022 02:18:26 01/27/20 22 01/27/2022 RENAL FUNCT ION PANEL BUN/creatini ne ratio not applic able (calc ) 6-22 Not Available [address] [address] [place], [address], 01/27/2022 02:18:26 01/27/20 22 01/27/2022 RENAL FUNCT ION PANEL sodium 136 mmol/ L 135-14 6 normal Not Available [address], [address], 01/27/2022 02:18:26 01/27/20 22 01/27/2022 RENAL FUNCT ION PANEL potassium 4.0 mmol/ L 3.5-5. 3 normal Not Available [address], [address], 01/27/2022 02:18:26 01/27/20 22 01/27/2022 RENAL FUNCT ION PANEL chloride 99 mmol/ L 98-110 normal Not Available [address], [address], 01/27/2022 02:18:26 01/27/20 22 01/27/2022 RENAL FUNCT ION PANEL carbon dioxide 30 mmol/ L 20-32 normal Not Available [address], [address], 01/27/2022 02:18:26 01/27/20 22 01/27/2022 RENAL FUNCT ION PANEL calcium 10.0 mg/dL 8.6-10 .4 normal Not Available [address], [address], 01/27/2022 02:18:26 01/27/20 22 01/27/2022 RENAL FUNCT ION PANEL phosphate ( phosphorus) 3.2 mg/dL 2.1-4. 3 normal Not Available [address] [address] [place], [address], 01/27/2022 02:18:26 01/27/20 22 01/27/2022 RENAL FUNCT ION PANEL albumin 4.4 g/dL 3.6-5. 1 normal Not Available [address], [address], 01/27/2022 02:18:26 07/14/19 23 07/13/2022 BASIC METAB OLIC PANEL sodium 133 mmol/ L 137-14 5 low Not Available [facility] (Lab) [address] [place], [address], 07/13/2022 20:27:40 07/14/19 23 07/13/2022 BASIC METAB OLIC PANEL potassium 3.9 mmol/ L 3.5-5. 1 Not Available [facility] (Lab) [address] [place], [address], 07/13/2022 20:27:40 07/14/19 23 07/13/2022 BASIC METAB OLIC PANEL chloride 96 mmol/ L 98-107 low Not Available [facility] (Lab) [address] [place], [address], 07/13/2022 20:27:40 07/14/19 23 07/13/2022 BASIC METAB OLIC PANEL carbon dioxide 30 mmol/ L 22-30 Not Available [facility] (Lab) [address] [place], [address], 07/13/2022 20:27:40 07/14/19 23 07/13/2022 BASIC METAB OLIC PANEL anion gap 10.9 mmol/ L 14-22 low Not Available [facility] (Lab) [address] [place], [address], 07/13/2022 20:27:40 07/14/19 23 07/13/2022 BASIC METAB OLIC PANEL glucose 93 mg/dL 70-99 Not Available [facility] (Lab) [address] [place], [address], 07/13/2022 20:27:40 07/14/19 23 07/13/2022 BASIC METAB OLIC PANEL BUN 14 mg/dL 8-19 Not Available [facility] (Lab) [address] [place], [address], 07/13/2022 20:27:40 07/14/19 23 07/13/2022 BASIC METAB OLIC PANEL creatinine 0.68 mg/dL 0.66-1 .25 Not Available [facility] (Lab) [address] [place], [address], 07/13/2022 20:27:40 07/14/19 23 07/13/2022 BASIC METAB OLIC PANEL GFR >60 Refer ence Range : Helena ge GFR Healt hy Adult : >60 [...] on the F websi te: https ://salena w.kid celestino.o rg/pr emeliess ional s/kdo qi/gf r_cal culat or Not Available [facility] (Lab) [address] [place], [address], 07/13/2022 20:27:40 07/14/1907/13/2022 BASIC METAB OLIC PANEL calcium 9.9 mg/dL 8.4-10 .2 Not Available [facility] (Lab) [address] [place], [address], 07/13/2022 20:27:40 07/14/19 23 07/13/2022 LIPID PANEL cholesterol 203 mg/dL 140-19 9 high NIH ABENA NSUS RECOM MENDA TION FOR CHRISTIANE STERO L: ADULT CHILD LOW RISK: <200 <170 BORDE RLINE : <200- 239 ----- HIGH RISK: >240 >200 Not Available [facility] (Lab) [address] [place], [address], 07/13/2022 20:27:44 07/14/19 23 07/13/2022 LIPID PANEL triglyceride s 60 mg/dL 0-150 NIH ABENA NSUS REPOR T RECOM MENDA TION FOR TRIGL YCERI NAN: ADULT CHILD LOW RISK: <150 ----- BODER LINE: 150-1 99 ----- HIGH RISK: >200 ----- Not Available [facility] (Lab) [address] [place], [address], 07/13/2022 20:27:44 07/14/19 23 07/13/2022 LIPID PANEL HDL cholesterol 79 mg/dL 40- Not Available [facility] (Lab) [address] [place], [address], 07/13/2022 20:27:44 07/14/19 23 07/13/2022 LIPID PANEL [...] WILL NOT BE REPOR JIMBO. Not Available [facility] (Lab) [address] [place], [address], 07/13/2022 20:27:44 07/14/19 23 07/13/2022 HEPAT IC/LI SEJAL PANEL alkaline phosphatase 61 U/L 38-126 Not Available [facility] (Lab) [address] [place], [address], 07/13/2022 20:29:03 07/14/19 23 07/13/2022 HEPAT IC/LI SEJAL PANEL alanine aminotransfe rase 25 U/L 0-35 Not Available [facility] (Lab) [address] [place], [address], 07/13/2022 20:29:03 07/14/19 23 07/13/2022 HEPAT IC/LI SEJAL PANEL aspartate aminotransfe rase 46 U/L 15-37 high Not Available [facility] (Lab) [address] [place], [address], 07/13/2022 20:29:03 07/14/19 23 07/13/2022 HEPAT IC/LI SEJAL PANEL bilirubin, total 0.50 mg/dL 0.20-1 .30 Not Available [facility] (Lab) [address] [place], [address], 07/13/2022 20:29:03 07/14/19 23 07/13/2022 HEPAT IC/LI SEJAL PANEL bilirubin, conjugated (direct) 0.00 mg/dL 0.00-0 .30 Not Available [facility] (Lab) [address] [place], [address], 07/13/2022 20:29:03 07/14/19 23 07/13/2022 HEPAT IC/LI SEJAL PANEL biliurubin,u ncong. (indirect) 0.30 mg/dL 0.00-1 .1 Not Available [facility] (Lab) [address] [place], [address], 07/13/2022 20:29:03 07/14/19 23 07/13/2022 HEPAT IC/LI SEJAL PANEL total protein 7.3 g/dL 6.3-8. 2 Not Available [facility] (Lab) [address] [place], [address], 07/13/2022 20:29:03 07/14/19 23 07/13/2022 HEPAT IC/LI SEJAL PANEL albumin 4.4 g/dL 3.0-4. 4 Not Available [facility] (Lab) [address] [place], [address], 07/13/2022 20:29:03 07/14/19 23 07/13/2022 HEPAT IC/LI SEJAL PANEL globulin 2.9 g/dL 2.6-4. 2 Not Available [facility] (Lab) [address] [place], [address], 07/13/2022 20:29:03 07/14/19 23 07/13/2022 HEPAT IC/LI SEJAL PANEL A/G ratio 1.5 ratio 1.0-2. 0 Not Available [facility] (Lab) [address] [place], [address], 07/13/2022 20:29:03 Result Notes None recorded. 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 Medical [...] completed Not Available Not Available Not Available Prior Knowledge 1.5 billion cell capsule Take 1 capsule [...] Heart rate Body temperature Body weight Systolic And Diastolic Provider Name and Address Organization Details Last Updated DateTime 2 19.1 kg/m2 170.18 cm 95 % 95 % 72 /min 97.1 [degF] 73455.2 7 g 126/80 mm[Hg] Not Available [facility] 3 03:19:00 Date Recorded Body height Body mass index (BMI) Body weight Body temperature Heart rate Respiratory rate Oxygen saturation Oxygen saturation in Arterial blood by Pulse oximetry Systolic And Diastolic Provider Name and Address Organization Details Last Updated DateTime 3 170.18 cm 18.5 kg/m2 68889.6 g 96.7 [degF] 75 /min 16 /min 97 % 97 % 140/82 mm[Hg] Francesca Clements RN [facility] [employer] [facility] 3 15:55:29 Date Recorded Body height Provider Name an d Address Organization Details Last Updated DateTime 07/13/2022 170.18 cm Deanna Gutierrez MA [facility] [employer] [facility] 07/13/2022 12:45:49 Date Recorded Body height Body mass index (BMI) Body weight Body temperature Heart rate Respiratory rate Oxygen saturation Oxygen saturation in Arterial blood by Pulse oximetry Systolic And Diastolic Provider Name and Address Organization Details Last Updated DateTime 3 170.18 cm 18.9 kg/m2 39215.1 8 g 96.1 [degF] 72 /min 16 /min 98 % 98 % 140/84 mm[Hg] Francesca Clements RN [facility] [employer] [facility] 3 09:09:54 Date Recorded Body mass index (BMI) Body height Oxygen saturation Oxygen saturation in Arterial blood by Pulse oximetry Heart rate Body temperature Body weight Systolic And Diastolic Provider Name and Address Organization Details Last Updated DateTime 2 18.8 kg/m2 170.18 cm 97 % 97 % 81 /min 97.3 [degF] 33965.0 8 g 130/82 mm[Hg] Not Available [facility] 3 03:19:00 Social History Question Answer Notes LastModified by Organizat ion Details LastModified Time Tobacco Smoking Status Never Smoker Yasmin jones [facility] [employer] [facility] 11/29/2022 09:02:22 Are You Blind Or Do You Have Difficulty Seeing? No [email or web address] Information not available 11/29/2022 Is Blood Transfusion Acceptable In An Emergency? Yes [email or web address] Information not available 11/29/2022 What Is Your Level Of Caffeine Consumption? Occasional [id number] Information not available 05/17/2022 How Much Tobacco Do You Chew? None [id number] Information not available 05/17/2022 What Is Your Code Status? Full Code Information not available 11/29/2022 In The 14 Days Before Symptom Onset, Have You Had Close Contact With A Laboratory-confir med COVID-19 While That Case Was Ill? No [email or web address] Information not available 11/29/2022 In The 14 Days Before Symptom Onset, Have You Had Close Contact With A Person Who Is Under Investigation For COVID-19 While That Person Was Ill? No Information not available 11/29/2022 Are You Deaf Or Do You Have Serious Difficulty Hearing? No [email or web address] Information not available 11/29/2022 What Type Of Diet Are You Following? REGULAR Information not available 07/10/2022 Which Illicit Or Recreational Drugs Have You Used? None [email or web address] Information not available 11/29/2022 How Many Days Of Moderate To Strenuous Exercise, Like A Brisk Walk, Did You Do In The Last 7 Days? 4 [email or web address] Information not available 11/29/2022 On Those Days That You Engage In Moderate To Strenuous Exercise, How Many Minutes, On Average, Do You Exercise? 60 [email or web address] Information not available 11/29/2022 Have There Been Any Changes To Your Family Or Social Situation? No [email or web address] Information no t available 11/29/2022 Do You Use Insect Repellent Routinely? Yes [email or web address] Information not available 11/29/2022 Where Do You Live? [facility] [email or web address] Information not available 11/29/2022 Do You Have A Medical Power Of Test And Turn Up Technician? Yes Information not available 11/29/2022 How Many Children Do You Have? 0 [email or web address] Information not available 11/29/2022 Do You Have Any Pets? Yes [email or web address] Information not available 11/29/2022 What Is Your Relationship Status? Information not available 07/10/2022 Do You Use Your Seat Belt Or Car Seat Routinely? Yes [email or web address] Information not available 11/29/2022 Do You Have Smoke And Carbon Monoxide Detectors In Your Home? Yes Information not available 11/29/2022 Are There Any Smokers In Your House? No [email or web address] Information not available 11/29/2022 How Much Tobacco Do You Smoke? No [id number] Information not available 05/17/2022 Do You Participate In Social Media? Yes Information not available 11/29/2022 What Types Of Sporting Activities Do You Participate In? Yoga, [place] [email or web address] Information not available 11/29/2022 Do You Use Sunscreen Routinely? Yes [email or web address] Information not available 11/29/2022 Have You Recently Traveled Abroad? No [email or web address] Information not available 11/29/2022 Do You Have Difficulty Walking Or Climbing Stairs? No [email or web address] Information not available 11/29/2022 Sex: Unknown Functional Status Question Answer Note LastModified by [employer] ion Details LastModified Time Do you use any illicit or recreational drugs? No Information not available 11/29/2022 What is your level of alcohol consumption? Occasional [id number] Information not available 05/17/2022 Do you or have you ever used smokeless tobacco? Never used smokeless tobacco [id number] Information not available 05/17/2022 Do you have transportation difficulties? No [email or web address] Information not available 11/29/2022 Are you able to walk? [email or web address] Information not available 11/29/2022 Do you have difficulty doing errands alone? No Information not available 11/29/2022 Are you able to care for yourself? Yes [email or web address] Information n ot available 11/29/2022 What is your occupation? retired [email or web address] Information not available 11/29/2022 Do you have difficulty dressing or bathing? No Information not available 11/29/2022 Do you or have you ever used e-cigarettes or vape? Never used electronic cigarettes Information not available 11/29/2022 What is your exercise level? Moderate [id number] Information not available 05/17/2022 Mental Status Question Answer Note LastModified by Organizat ion Details LastModified Time Do you feel stressed (tense, restless, nervous, or anxious, or unable to sleep at night)? [id number] [email or web address] Information not available 11/29/2022 Do you have difficulty concentrating, remembering or making decisions? No [email or web address] Information no t available 11/29/2022 Family History Relationship Description Onset Age of this Age Resolved Age Notes LastModified by Organization Details LastModified Time Mother Alzheimer's disease [id number] Not available 05/17/2022 03:14:42 Medical History Condition [...] Influenza, high-dose, quadrivalent, PF 3 completed Francesca Carroll NP [address] [facility], [facility] [address], [place], [address], [facility] [employer] 11/29/2022 09:30:26 COVID-19, mRNA, LNP-S, PF, 100 mcg/0.5mL dose or 50 mcg/0.25mL dose 1 completed Not Available [facility] 05/17/2022 03:31:42 COVID-19, mRNA, LNP-S, PF, 100 mcg/0.5mL dose or 50 mcg/0.25mL dose 1 completed Not Available [facility] 05/17/2022 03:31:42 Influenza, split virus, quadrivalent, preservative 0 completed Not Available [facility] 05/17/2022 03:31:42 Influenza, split virus, quadrivalent, preservative 7 completed Not Available [facility] 05/17/2022 03:31:42 zoster live 1 completed Not Available [facility] 05/17/2022 03:31:42 Tdap 0 completed Not Available [facility] 05/17/2022 03:31:42 Influenza, high-dose, trivalent, PF 9 completed Not Available [facility] 05/17/2022 03:31:42 Influenza, high-dose, trivalent, PF 8 completed Not Available [facility] 05/17/2022 03:31:42 Pneumococcal conjugate PCV 13 7 completed Not Available [facility] 05/17/2022 03:31:42 Influenza, high-dose, trivalent, PF 7 completed Not Available [facility] 05/17/2022 03:31:42 pneumococcal polysaccharide PPV23 4 completed Not Available [facility] 05/17/2022 03:31:43 Influenza, split virus, trivalent, PF 3 completed Not Available [facility] 05/17/2022 03:31:43 Past Encounters Encounter ID Performer Location Encounter Start Date Encounter Closed Date Diagnosis/Indication Diagnosis SNOMED-CT Code Diagnosis ICD10 Code Diagnosis Note [id number] [facility] [address] , [place] [address] 06/21/2020 00:00:00 06/21/2020 13:10:06 [id number] Oliva Matthews MD [address] [place] [address] 12/23/2020 00:00:00 12/23/2020 12:59:58 [id number] Oliva Matthews MD [address] [place] [address] 06/07/2021 00:00:00 06/07/2021 14:29:12 [id number] [facility] [address] [place] [address] 12/29/2021 00:00:00 12/29/2021 11:39:04 [id number] Francesca Carroll NP [address] [address] 07/10/2022 15:42:51 07/10/2022 17:47:19 Essential hypertension 13985895 I10 Atenolol 50 mg - chlorthali done 25 mg po daily.Salt sparingly. Hyperlipidemia 00969177 E78.5 Simvastati n 20 mg po nightly. Osteoarthritis of hip 23 0461958 M16.9 CBD oil under tongue. CBD cream and rub in. Voltaren gel otc. Low back pain [id number] M54.50 Flares off and on from time to time. [id number] Francesca Carroll NP [facility] [address] 07/13/2022 11:13:42 07/13/2022 12:48:08 [id number] Francesca Carroll NP [facility] [address] 11/29/2022 09:01:27 11/29/2022 09:30:42 Essential hypertension 61362796 I10 Atenolol 50 mg - chlorthali done 25 mg po daily.Salt sparingly. Hyperlipidemia 83634436 E78.5 Simvastati n 20 mg po nightly. Osteoarthritis of hip 23 3615874 M16.9 CBD oil under tongue. CBD cream and rub in. Voltaren gel otc. Low back pain [id number] M54.50 Flares off and on from time to time. Administra tion of influenza vaccine [id number] Z23 flu shot high dose. Administra tion of tetanus vaccine [id number] Z23 will get Td on next visit. Health Concerns Section Related Observation LastModified by Organization Detai ls LastModified Time None Recorded Concern Status LastModified by Organization Details LastModified Time None Recorded Advance Directives Directive None Recorded Payers Insurance Date Sequence Insurance Name Policy Number Policy Cancino Covered Member ID Cancino Member ID Guarantor Name 11/28/2022 1 [facility] (MEDICARE REPLACEMENT/A DVANTAGE - PPO) [id number] Daxa Piña [id number] Daxa Piña Notes Date Note Type Note Provider Name and Address Organization Details Recorded Time 07/10/2022 text/html Here for new patient appt. Transfer from [place] office. States she is feeling well.Doesn't wish to have colonoscopy.Act grayson with yoga Francesca Carroll NP [address] [facility], [place] [address], [place], [address], [facility] [place] 07/11/2022 07:36:33 11/29/2022 text/html Here for follow up. Lipid- low fat diet.htn- stable Francesca Carroll NP [address] [facility], [facility] [address], [place], [address], [facility] 11/29/2022 09:32:42 OBGyn Episode No OBEpisode recorded.
[2024-09-24] MEDS: LACTATED RINGERS 1,000 ML 30 ML IV CONT ×2 (06:45→10:57)
--- NOTE | 2024-09-24 06:56 | WPDANESEPPF ---
Anes - Initial Pre Proc Eval Procedure: Operation Date: 09/24/24 07:30 Proposed Procedures p Right Total Hip Arthroplasty - Maximo Sood MD Date/Time: 09/24/24 06:56 Surgeon: Maximo Sood MD Pre Op Diagnosis: Right Hip O.A. Patient Data Age: 79 Gender: F Height: 1.67 m Weight: 53.9 kg Last Vital Signs Temp 98.5 F 09/11/24 12:27 Pulse 72 09/11/24 12:27 Resp 16 09/11/24 12:27 BP 168/83 H 09/11/24 12:27 Pulse Ox 97 09/11/24 12:27 O2 Del Method Room Air 09/11/24 12:27 Allergies Allergy/AdvReac Type Severity Reaction Status Date / Time No Known Allergies Allergy Verified 09/11/24 12:19 Home Medications ?Medication ?Instructions ?Recorded ?Confirmed ?Type simvastatin 10 mg tablet 10 mg PO DAILY #90 tabs 06/17/24 09/11/24 Rx atenolol 50 mg-chlorthalidone 25 1 tablet PO DAILY #90 tabs 06/24/24 09/11/24 Rx mg tablet alpha lipoic acid 200 mg capsule 200 mg PO DAILY 09/11/24 09/11/24 History cholecalciferol (vitamin D3) 25 1,000 unit PO DAILY 09/11/24 09/11/24 History mcg (1,000 unit) capsule cyanocobalamin (vitamin B-12) 2,500 mcg PO DAILY 09/11/24 09/11/24 History 2,500 mcg tablet magnesium glycinate 100 mg (as 200 mg PO DAILY 09/11/24 09/11/24 History glycinate) tablet (Mag Glycinate) omega 5-vur-fad-fish oil 1,000 mg 1 cap PO DAILY 09/11/24 09/11/24 History (120 mg-180 mg) capsule (Fish Oil) psyllium husk 3.4 gram/5.4 gram 1 tsp PO 4XW 09/11/24 09/11/24 History oral powder (Metamucil) pyridoxine (vitamin B6) 100 mg 100 mg PO DAILY 09/11/24 09/11/24 History tablet alendronate 70 mg tablet 70 mg PO WEEKLY #12 tabs 09/16/24 Rx chlorhexidine gluconate 4 % 1 applic topical ONCE #237 mL 09/17/24 Rx topical liquid (Hibiclens) Patient hx anesthesia problems: none Family hx anesthesia problems: none Results Review: All pre-operative results and documents have been reviewed as part of the pre-operative evaluation. [facility] Past Medical History Medical History Other fatigue Degenerative joint disease (DJD) of hip Right hip pain Osteoporosis Dexa diagnosed femoral head 11/2023 [place] of foot Essential hypertension Hyperlipidemia Family History Family History Father Myasthenia gravis Mother Hypertension Social History Social History Social History: 12/02/23 very confident with medical forms Smoking status: Never smoker Alcohol intake: current Drinks per week: 4 Alcohol use details: 2-3 times a week Substance use: never Substance use type: does not use Do You Feel Safe in your Home?: Yes Lack of Transportation: No Lack of Food: Never True Current Housing: I Have Housing Concerned About Future Housing: No Difficulty Paying Gas/Electric Bills: No Difficulty Paying for Meds: No Currently Unemployed: No Education: Bachelor's Degree Difficulty w/ Childcare or Family Care: No Living arrangements: with family Additional living arrangements comments: JAC[place] Occupation/Education: retired Gender identity (if verbalized by the patient): Female Spiritual care concerns: No Anes - Eval Final PreProcedure Day of Procedure 09/24/24 06:56 Patient weight: normal Lungs: normal air movement Airway: Mallampati scale class II Neurological: alert and oriented Last oral intake: >/= 8 hours ASA classification: II Emergent: no Anesthetic plan: proceed Anesthesia type and monitoring: general ETT and standard monitoring Results Review: All pre-operative results and documents have been reviewed as part of the pre-operative evaluation. HTN, hyperlipidemia. Pt had abnormal EKG and then stress test 07/2024 w nml perfusion, nml LVEF. Informed Consent: The patient's anesthetic plan and its attendant risks and benefits were discussed with the patient/family/POA. Questions were solicited and answers provided to the satisfaction of the patient/family/POA.
[2024-09-24] MEDS: ACETAMINOPHEN 500 MG TABLET 1000 MG PO (07:16)
[2024-09-24] MEDS: TRANEXAMIC ACID 1,000MG/ISO100 1,000 MG/100 ML BAG 200 MG IVPB (07:16)
--- NOTE | 2024-09-24 07:20 | WPDHPUPDATE1 ---
History and Physical Update Update Date/Time: 09/24/24 07:20 History and Physical has been reviewed, including an updated exam of the patient. There are NO changes in the patient's condition. Risks, benefits, and alternatives have been discussed and questions answered. Patient agrees to proceed with procedure.
[2024-09-24] MEDS: ceFAZolin 2 GM in SODIUM CHLORIDE 0.9% IV 50 ML 100 ML IVPB (07:43)
[2024-09-24] MEDS: SODIUM CHLORIDE 0.9% IV 37.7 ML, MORPHINE SULFATE INJ (*CRX) 2 MG, ROPivacaine HCL 1% 2... INFILTRATE (08:49)
--- NOTE | 2024-09-24 11:11 | W.PM.PROC2 ---
Procedure Note - Detailed Date of Procedure 09/24/24 Pre-op Diagnosis Right Hip O.A. Post-op Diagnosis Same Procedure Performed R ALBER Surgeon Maximo Sood MD Anesthesia General Description of Procedure THE PATIENT WAS TAKEN TO THE OPERATING ROOM IN STABLE CONDITION AND WAS PLACED IN THE LATERAL DECUBITUS AND THE RIGHT LOWER EXTREMITY WAS PREPPED AND DRAPED IN THE STERILE FASHION. INCISION WAS MADE IN THE POSTERIOR LATERAL SIDE OF THE HIP, DOWN TO THE FASCIA LAYER. THE FASCIA WAS INCISED. THE HIP WAS EXPOSED. THE SHORT EXTERNAL ROTATORS WERE EXPOSED. THE SCIATIC NERVE WAS IDENTIFIED. INCISION WAS MADE THROUGH THE SHORT EXTERNAL ROTATORS AND THE CAPSULE OF THE HIP JOINT. THE HIP WAS DISLOCATED. AN OSTEOTOMY WAS MADE TO THE FEMORAL NECK ABOUT 1 CM PROXIMAL TO THE LESSER TROCHANTER. THE ACETABULUM WAS EXPOSED. THERE WAS PROTRUSIO WITH A VERY THIN ACETABULAR WALL. THERE WAS SEVERE DJD SEEN. BEGINNING WITH A 44 REAMER THE ACETABULUM WAS REAMED TO 53 MM. A 54 MM TRIAL WAS PLACED IN 35 DEG OF ABDUCTION AND ANTEVERSION WAS IN ALIGNMENT WITH THE TRANS ACETABULAR LIGAMENT. THE FIT WAS EXCELLENT. THE TRIAL WAS REMOVED. A 54 MM BIOMET G7 COMPONENT WAS THEN TAPPED IN TO PLACE IN 35 DEG OF ABDUCTION AND ANTEVERSION IN ALIGNMENT WITH THE TRANSVERSE ACETABULAR LIGAMENT. THE FIT WAS EXCELLENT. SCREWS WERE PLACED. ALL HAD GOOD BITES. NEXT OSTEOPHYTES WERE REMOVED FROM THE RIM OF THE ACETABULUM. THE ACETABULAR LINER WAS THEN PLACED AND CHECKED FOR STABILITY. NEXT THE FEMUR WAS PREPARED WITH INITIAL CANAL FINDER THEN SEQUENTIAL BROACHING WITH A TAPERLOC HIP SYSTEM, UNTIL A 12 BROACH FIT WELL IN 15 OF ANTEVERSION. A -3 HIGH OFFSET NECK WITH 36 MM HEAD TRIAL WAS PLACED. THE SHUCK TEST WAS EXCELLENT AND THE STABILITY IN FLEXION AND ROTATION WAS EXCELLENT. LEG LENGTHS WERE GROSSLY EQUAL. TRIALS WERE REMOVED. A BIOMET TAPERLOC 12 STEM WAS PLACED WITH A HIGH OFFSET NECK. THE FIT WAS EXCELLENT IN 15 DEG OF ANTEVERSION. A -3 CERAMIC 36 MM FEMORAL HEAD WAS PLACED. THE HIP WAS TRIALED AND THE STABILITY WAS EXCELLENT WERE THE LEG LENGTHS AND THE SHUCK TEST. THE WOUND WAS IRRIGATED WITH STERILE BETADINE AND WATER FOR 3 MIN. THEN WASHED AGAIN. THE SCIATIC NERVE WAS IDENTIFIED AGAIN. THE CAPSULE AND THE EXTERNAL ROTATORS WERE APPROXIMATED WITH NUMBER 1 VICRYL. THE FASCIA WITH No 2 QUIL AND THE SUB CUTANEOUS LAYER WITH 2-0 ABSORBABLE SUTURE AND A RUNNING 3-0 SUBCUTICULAR STITCH FOR THE SKIN. DERMABOND WAS PLACED AND STERILE DRESSING WAS APPLIED. PATIENT WAS PLACED BACK ON TO THE SUPINE POSITION AND WAS EXTUBATED Estimated Blood Loss 500 Complications No immediate complications Condition Stable Disposition PACU
--- NOTE | 2024-09-24 12:48 | ADMGEN ---
This patient, Daxa Piña, was admitted to [facility] Surg Room 301-01. Patient/family oriented to hospital policies and general routines including ID bracelet, bed and alarms, visiting hours, pain management, procedures, bathroom and other care routines, personal items, smoking policy, room service/diet, and visiting hours. Information on how to activate the Rapid Response Team has been discussed. Patient/Family are encouraged to report perceived risks to care and to ask questions if they do not understand what they are told or what they should do.
[2024-09-24] MEDS: oxyCODONE/ACETAMINOPHEN (*CRX) 5-325 MG TABLET 1 TABLET PO (13:47)
[2024-09-24] MEDS: CELECOXIB 200 MG CAPSULE PO (13:47)
[2024-09-24] MEDS: SENNA/DOCUSATE SODIUM TABLET 2 TAB PO ×2 (13:48→21:38)
[2024-09-24] MEDS: ASPIRIN 325 MG ENTERIC TABLET PO ×2 (13:50→21:39)
[2024-09-24] MEDS: FAMOTIDINE 20 MG TABLET PO ×2 (13:50→21:39)
[2024-09-24] MEDS: CHLORTHALIDONE 25 MG TABLET PO (13:50)
[2024-09-24] MEDS: SODIUM CHLORIDE 0.9% IV 1,000 ML 125 ML IV CONT ×2 (13:52→23:55)
[2024-09-24] MEDS: ONDANSETRON INJ 4 MG/2 ML VIAL IV PUSH (14:35)
[2024-09-24] MEDS: SIMVASTATIN 10 MG TABLET PO (16:11)
[2024-09-24] MEDS: ceFAZolin 2 GM/D5W 50 ML 2 GM/50 ML BAG IVPB ×2 (17:16→23:47)
[2024-09-25 00:58] VITALS: BP 134/63; PULSE 84; RESP 16; TEMP 36.9; O2SAT 100
[2024-09-25 05:04] VITALS: BP 154/67; PULSE 90; RESP 16; TEMP 37.1; O2SAT 97
[2024-09-25 07:11] LABS: Hematocrit 27.6 % (37.0-47.0); Hemoglobin 9.1 g/dL (12.0-15.0); Immature Granulocyte Percent A 0.4 % (0-0.5); Lymphocytes Absolute Auto 0.78 K/mm3 (0.9-3.2); Mean Corpuscular HGB Conc 33.0 g/dl (32-36); Mean Corpuscular Hemoglobin 30.6 pg (26-34); Mean Corpuscular Volume 92.9 fl (80-100); Nucleated Red Blood Cells Absolute Auto 0.000 K/mm3 (0.0-0.012); Nucleated Red Blood Cells Perc 0.0 % (0.0-0.2); Platelet Count Result 164 k/mm3 (150-375); Red Blood Count 2.97 M/mm3 (4.2-5.4); White Blood Count 8.3 K/mm3 (4.5-10.0)
[2024-09-25 07:19] LABS: Anion Gap 5 mmol/L (4-12); Blood Urea Nitrogen 14 mg/dL (7-17); Calcium 8.5 mg/dL (8.4-10.2); Carbon Dioxide 28 mmol/L (22-30); Chloride 94 mmol/L (98-107); Estimated CRCL calculation 60 ml/min; Estimated Glomerular Filt Rate > 60; Glucose 131 mg/dL (65-110); Potassium 4.2 mmol/L (3.4-5.0); Sodium 127 mmol/L (137-145)
--- NOTE | 2024-09-25 07:32 | WPDANESPN ---
Anes - Prog Note Post-Op Date/Time: 09/25/24 07:32 Cardiovascular status: normal Respiratory status: normal Airway patency: baseline Mental status: baseline Post-Op hydration status: normal Vital Signs: Last Vital Signs Temp 37.1 C 09/25/24 05:04 Pulse 90 09/25/24 05:04 Resp 16 09/25/24 05:04 BP 154/67 H 09/25/24 05:04 Pulse Ox 97 09/25/24 05:04 O2 Del Method Room Air 09/24/24 14:38 O2 Flow Rate 8 09/24/24 11:25 Pain Score (VAS): 2 I/O: Intake & Output 09/24/24 09/24/24 09/25/24 15:59 23:59 07:59 Intake Total 400 1050 1100 Balance 400 1050 1100 Laboratory Tests 09/25/24 06:27 09/25/24 06:27 09/25/24 06:27 WBC 8.3 RBC 2.97 L Hgb 9.1 L D Hct 27.6 L MCV 92.9 MCH 30.6 MCHC 33.0 RDW 12.6 Plt Count 164 MPV 9.8 Immature Gran % (Auto) 0.4 Neut % (Auto) 80.0 H Lymph % (Auto) 9.5 L [place] % (Auto) 9.8 H Eos % (Auto) 0.1 Baso % (Auto) 0.2 Lymph # (Auto) 0.78 L [place] # (Auto) 0.8 H Eos # (Auto) 0.0 Baso # (Auto) 0.0 Abs Immat Gran (auto) 0.03 Absolute Neuts (auto) 6.6 Absolute Nucleated RBC 0.000 Nucleated RBC % 0.0 Sodium 127 L Potassium 4.2 Chloride 94 L Carbon Dioxide 28 Anion Gap 5 BUN 14 Creatinine 0.56 L Estim Creat Clear Calc 60 Estimated GFR > 60 Glucose 131 H Calcium 8.5 Post-procedural complaints: none Patient Feedback: Patient satisfied with anesthetic care.
[2024-09-25] MEDS: ceFAZolin 2 GM/D5W 50 ML 2 GM/50 ML BAG IVPB (07:46)
[2024-09-25] MEDS: SENNA/DOCUSATE SODIUM TABLET 2 TAB PO ×2 (07:49→16:18)
[2024-09-25] MEDS: ASPIRIN 325 MG ENTERIC TABLET PO (07:49)
[2024-09-25] MEDS: CHLORTHALIDONE 25 MG TABLET PO (07:49)
[2024-09-25] MEDS: FAMOTIDINE 20 MG TABLET PO (07:49)
[2024-09-25] MEDS: SIMVASTATIN 10 MG TABLET PO (07:49)
[2024-09-25] MEDS: CELECOXIB 200 MG CAPSULE PO (07:49)
[2024-09-25 08:00] VITALS: BP 174/80; PULSE 83; RESP 16; TEMP 37.1; O2SAT 98
[2024-09-25 11:51] VITALS: O2SAT 94
[2024-09-25] MEDS: oxyCODONE/ACETAMINOPHEN (*CRX) 5-325 MG TABLET 1 TABLET PO (13:31)
[2024-09-25 14:00] VITALS: BP 160/74; PULSE 83; RESP 16; TEMP 36.8; O2SAT 98
--- NOTE | 2024-09-25 17:12 | PM.PNORT ---
Progress Note: A&P Assessment and Plan (1) Degenerative joint disease (DJD) of hip: Qualifiers: Osteoarthritis type: primary Laterality: right Qualified Code(s): M16.11 - Unilateral primary osteoarthritis, right hip Code(s): M16.9 - Osteoarthritis of hip, unspecified Status: Acute Assessment and Plan: POD 1 DOING WELL. OK TO DC HOME, F/U IN 3 WEEKS. Subjective Subjective Date/Time Seen: 09/25/24 17:12 Interval history: POD 1 DOING WELL. NO CALF PAIN Exam Extrem: Other: VSS AFEBRILE DRESSING DRY NV INTACT NEG HOMANS SIGN CALF SOFT NON TENDER Objective Data Vital Signs Vital Signs: Vital Signs - 24 hr 09/24/24 21:53 09/25/24 00:58 09/25/24 05:04 Temperature 36.6 C 36.9 C 37.1 C Pulse Rate 83 84 90 Respiratory Rate 20 16 16 Blood Pressure 157/71 H 134/63 154/67 H Pulse Oximetry 100 100 97 Oxygen Delivery 09/25/24 08:00 09/25/24 08:00 09/25/24 11:51 Temperature 37.1 C Pulse Rate 83 Respiratory Rate 16 Blood Pressure 174/80 H Pulse Oximetry 98 94 Oxygen Delivery Room Air Room Air 09/25/24 14:00 Temperature 36.8 C Pulse Rate 83 Respiratory Rate 16 Blood Pressure 160/74 H Pulse Oximetry 98 Oxygen Delivery Intake/Output Intake/Output: Intake & Output 09/22/24 09/23/24 09/24/24 09/25/24 23:59 23:59 23:59 23:59 Intake Total 1500 1680 Balance 1500 1680 Meds/Results Medications: Active Medications Generic Name Dose Route Start Last Admin Trade Name Freq PRN Reason Stop Dose Admin Acetaminophen 500 mg 09/24/24 11:52 Acetaminophen 500 Mg Tablet PO Q6H PRN Pain Rated 1-3 Aspirin 325 mg 09/24/24 13:00 09/25/24 07:49 Aspirin 325 Mg Enteric Tablet PO 325 mg Q12HR EVANGELIST Administration Atenolol 50 mg 09/24/24 13:00 09/25/24 07:49 Atenolol 50 Mg Tablet PO 50 mg DAILY EVANGELIST Administration Celecoxib 200 mg 09/24/24 12:15 09/25/24 07:49 Celecoxib 200 Mg Capsule PO 200 mg DAILY EVANGELIST Administration Chlorthalidone 25 mg 09/24/24 13:00 09/25/24 07:49 Chlorthalidone 25 Mg Tablet PO 25 mg QAM EVANGELIST Administration Diazepam 5 mg 09/24/24 11:52 Diazepam (*Crx) 5 Mg Tablet PO Q6H PRN Anxiety/Muscle Spasm Diphenhydramine HCl 25 mg 09/24/24 11:52 Diphenhydramine Hcl Inj 50 Mg/Ml Vial IV PUSH Q6H PRN Itching Famotidine 20 mg 09/24/24 13:00 09/25/24 07:49 Famotidine 20 Mg Tablet PO 20 mg Q12HR EVANGELIST Administration Hydromorphone HCl 1 mg 09/24/24 11:52 Hydromorphone Hcl Inj (*Crx) 1 Mg/Ml Syr IV PUSH Q2H PRN Breakthrough Pain Rated 7-10 or NPO Hydromorphone HCl 0.5 mg 09/24/24 11:52 Hydromorphone Hcl Inj (*Crx) 1 Mg/Ml Syr IV PUSH Q2H PRN Breakthrough Pain Rated 4-6 or NPO Ibuprofen 800 mg in 200 mls @ 400 mls/hr 09/24/24 11:52 Caldolor 800 Mg/200 Ml IVPB Q6H PRN Breakthrough Pain Rated 1-3 or NPO Naloxone HCl 0.1 mg 09/24/24 11:52 Naloxone Hcl 0.4 Mg/Ml Vial IV PUSH Q2M PRN Opiate Reversal Ondansetron HCl 4 mg 09/24/24 11:52 09/24/24 14:35 Ondansetron Inj 4 Mg/2 Ml Vial IV PUSH 4 mg Q4H PRN Administration Nausea And Vomiting Oxycodone/Acetaminophen 1 tablet 09/24/24 11:52 09/25/24 13:31 Oxycodone/Acetaminophen (*Crx) 5-325 Mg Tablet PO 0.5 tablet Q4H PRN Administration Pain Rated 4-6 Oxycodone/Acetaminophen 1 tab 09/24/24 11:52 Oxycodone/Acetaminophen (*Crx) 10-325 Mg Tablet PO Q6H PRN Pain Rated 7-10 Polyethylene Glycol 17 gm 09/24/24 13:00 09/25/24 07:49 Polyethylene Glycol 3350 17 Gm Powd.Pack PO 17 gm QAM EVANGELIST Administration Senna/Docusate Sodium 2 tab 09/24/24 13:00 09/25/24 16:18 Senna/Docusate Sodium Tablet PO 2 tab BID EVANGELIST Administration Simvastatin 10 mg 09/24/24 13:00 09/25/24 07:49 Simvastatin 10 Mg Tablet PO 10 mg DAILY EVANGELIST Administration Radiology Results: ITS Impressions Hip X-Ray 09/24/24 13:06 IMPRESSION: 22 x 52 mm well-circumscribed focus of mixed density within the expected region of the obturator internus muscle for which clinical correlation is needed. Otherwise, expected perioperative appearance of a right total hip arthroplasty, as detailed above. Labs Labs: Laboratory Results - last 24 hr 09/25/24 06:27 WBC 8.3 RBC 2.97 L Hgb 9.1 L D Hct 27.6 L MCV 92.9 MCH 30.6 MCHC 33.0 RDW 12.6 Plt Count 164 MPV 9.8 Immature Gran % (Auto) 0.4 Neut % (Auto) 80.0 H Lymph % (Auto) 9.5 L [place] % (Auto) 9.8 H Eos % (Auto) 0.1 Baso % (Auto) 0.2 Lymph # (Auto) 0.78 L [place] # (Auto) 0.8 H Eos # (Auto) 0.0 Baso # (Auto) 0.0 Abs Immat Gran (auto) 0.03 Absolute Neuts (auto) 6.6 Absolute Nucleated RBC 0.000 Nucleated RBC % 0.0 Sodium 127 L Potassium 4.2 Chloride 94 L Carbon Dioxide 28 Anion Gap 5 BUN 14 Creatinine 0.56 L Estim Creat Clear Calc 60 Estimated GFR > 60 Glucose 131 H Calcium 8.5
== END 2024-09-25 17:55 | disposition home or self-care (01) ==
LOC: ANHSURGERY 06:11 → ANH3MEDSUR 12:35
PROVIDERS: PCP Nurse Practitioner Family; Visit Provider Orthopaedic Surgery
PROC: (CPT 27130; principal; 2024-09-24 07:30)
DX: M16.11 Unilateral primary osteoarthritis, right hip (principal); M25.751 Osteophyte, right hip; E78.5 Hyperlipidemia, unspecified; I10 Essential (primary) hypertension; M81.0 Age-related osteoporosis without current pathological fracture; Z79.83 Long term (current) use of bisphosphonates
CPT/HCPCS: 27130; 36415; 73502; 80048; 85025; 97110; 97116; 97161; 97165; 97530; 97535; J0690; A9270; C1776; J0166; J1100; J1171; J1885; J2003; J2270; J2405; J2704; J2795; J3010; J7030; J7120